=== PATIENT | male | born 2000 | race Caucasian/White ===

== ENCOUNTER 2024-01-14 08:05 | Outpatient (OUT) | payer SELFPAY ==
--- NOTE | 2024-01-14 | XR_ITS ---
The [address] [address] Patient Name: VIVIEN FITZPATRICK MRN: [id number] date: 2000 Sex: M Assigned Patient Location: Current Patient Location: [facility] Accession/Order Number: [id number] Exam Date: 01/14/2024 08:11 Report Date: 01/15/2024 14:40 At the request of: RADHA GENTILE Procedure: XR ankle RT min 3V PROCEDURE: XR ankle RT min 3V COMPARISON: Images from an outside institution could not be viewed HISTORY: RIGHT ANKLE PAIN FINDINGS: BONES:Acute oblique distal fibular fracture with medial displacement of the proximal fracture fragment 7.7 mm. There is 8 mm of medial subluxation of the tibial plafond and in relation to the talar dome with widening of the medial joint space. Small fracture along the posterior malleolus measuring 1.1 cm. SOFT TISSUES:Moderate diffuse soft tissue swelling EFFUSION:None visible. OTHER: Negative. XR/XR ankle RT min 3V IMPRESSION: Acute fractures of the distal fibula and posterior malleolus Ankle instability Electronically authenticated by: FLORA TALBERT Date: 01/15/2024 14:40
== END 2024-01-14 08:06 | disposition home or self-care (01) ==
LOC: EC 08:06
PROVIDERS: Visit Provider Podiatrist Foot & Ankle Surgery
DX: M25.571 Pain in right ankle and joints of right foot (principal); S89.391A Other physeal fracture of lower end of right fibula, initial encounter for closed fracture
CPT/HCPCS: 73610

== ENCOUNTER 2024-01-14 09:15 | Outpatient (OUT) | payer OTHER, SELFPAY | END 2024-01-14 09:16 | disposition home or self-care (01) | LOC: PST 09:18 | PROVIDERS: Visit Provider Podiatrist Foot & Ankle Surgery | DX: Z01.818 Encounter for other preprocedural examination (principal); S82.401A Unspecified fracture of shaft of right fibula, initial encounter for closed fracture ==

== ENCOUNTER 2024-01-16 06:43 | Day surgery (SDC) | payer OTHER, SELFPAY ==
[2024-01-14 09:45] VITALS: BP 156/82; PULSE 95; TEMP 36.4; O2SAT 98; BMI 35.1
--- NOTE | 2024-01-16 | FL_ITS ---
[address] [address] Patient Name: VIVIEN FITZPATRICK MRN: [id number] date: 2000 Sex: M Assigned Patient Location: [facility] Current Patient Location: [facility] [place] Accession/Order Number: [id number] Exam Date: 01/16/2024 10:05 Report Date: 01/22/2024 10:13 At the request of: RADHA GENTILE Procedure: FL fluoroscopy <1hr NON-READ EXAM: FL fluoroscopy <1hr NON-READ HISTORY: TECHNIQUE: FINDINGS: Please see Operative Report. Electronically authenticated by: RADIOLOGIST NO Date: 01/22/2024 10:13
[2024-01-16 07:02] LABS: Basophils Percent Auto 0.4 % (0.2-2.0); Eosinophils Absolute Auto 0.1 10^3/uL (0.0-0.7); Eosinophils Percent Auto 0.6 % (0.9-7.0); Hematocrit 42.3 % (42.0-54.0); Hemoglobin 13.8 g/dL (14.0-18.0); Immature Granulocytes Abs Auto 0.03 10^3/uL (0.00-0.03); Immature Granulocytes Pct Auto 0.4 % (0.0-0.5); Lymphocytes Absolute Auto 1.6 10^3/uL (1.2-3.8); Lymphocytes Percent Auto 18.5 % (20.5-60.0); Mean Corpuscular HGB Conc 32.6 g/dL (29.9-35.2); Mean Corpuscular Hemoglobin 28.5 pg (25.9-34.0); Mean Corpuscular Volume 87.4 fL (80.0-94.0); Mean Platelet Volume 9.8 fL (9.5-13.5); Monocytes Absolute Auto 0.6 10^3/uL (0.3-0.8); Monocytes Percent Auto 7.2 % (1.7-12.0); Neutrophils Absolute Auto 6.2 10^3/uL (1.4-6.5); Neutrophils Percent Auto 72.9 % (43.0-75.0); Platelet Count 201 10^3/uL (150-450); Red Blood Count 4.84 10^6/uL (4.70-6.10); White Blood Count 8.4 10^3/uL (4.0-11.0)
[2024-01-16 07:10] VITALS: BP 166/89; PULSE 82; TEMP 36.7; O2SAT 95; BMI 34.4
[2024-01-16 07:41] LABS: Glucometer 104 mg/dL (74-106)
[2024-01-16] MEDS: LACTATED RINGER'S SOLUTION 1,000 ML 50 ML IV ×2 (07:56→10:32)
--- NOTE | 2024-01-16 08:02 | PC.NURSE ---
Patient consented to peripheral nerve block. 0742 Time out performed per protocol. Monitors connected and O2 applied. Patient positioned and then medicated per Dr. Strickland. Bedside ultrasound used to locate site. Block started at 0746 and ended at 0749. Patient remains on monitor and O2 until he will be taken to OR. Patient tolerated procedure well. at bedside currently.
[2024-01-16] MEDS: CEFAZOLIN SODIUM 2 GM/50 ML D5W PREMIX IV (08:12)
--- NOTE | 2024-01-16 08:38 | P.ORON_ITS ---
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 He presented to a local emergency department and was found to have lateral malleolus fracture with subluxation of the tibiotalar joint. He then saw me on 01/14/2024 and x-rays also demonstrated a small posterior malleolus fracture with substantial subluxation of the tibiotalar joint laterally. I discussed the potential risks and benefits of surgical intervention with my concern that if the ankle is not anatomically fixed he would have a higher risk of posttraumatic arthritis and chronic disability. Patient provided consent to undergo the above procedure Intraoperative findings: Intact skin wrinkles were noted on the lateral ankle and a significant improvement in swelling was noted as compared to examination in the office 2 days ago. The ankle was grossly unstable. Fibular fracture was consistent with oblique Dockery B with a significant amount of soft tissue/periosteum within the fracture line. Hematoma was notable over the lateral ankle which was evacuated thoroughly. Bone was hard and healthy with thick cortices. Stress examination revealed unstable syndesmosis therefore was repaired/stabilized. Medial and lateral ankle ligaments were stable. Once the lateral malleolus was fixed and the syndesmosis stabilized the posterior malleolus fracture was small with only mild displacement. Procedure in detail: Patient was identified in preoperative holding by myself which time correct side and site were marked and consent was obtained. Patient then underwent regional anesthesia by the anesthesia team. Preoperative antibiotics were started and the patient was brought back to the operating room and placed on table in supine position with a thigh tourniquet. Right lower extremity was prepped and draped in usual sterile fashion. Formal timeout was performed then the lower extremity was exsanguinated and the tourniquet was inflated. A longitudinal incision placed over the fibular malleolus was undertaken. Combination of sharp and blunt dissection gained access to the fibular fracture in all bleeders were coagulated. Hematoma was evacuated. Any periosteum or fibrous tissue was removed from the fracture line and the fracture surfaces were lightly curetted. Then utilizing manual reduction techniques the lateral malleolus was anatomically reduced and the posterior malleolus with only minimal displacement and was consistent with a cortical shell therefore decision was made to manage the posterior malleolus closed. A reduction clamp was used to temporarily stabilize the oblique lateral malleolus fracture. The fibula was then pinned temporarily with K wires temporarily. 3.5 mm cortical lag screw was placed across the fracture line and compression was noted. 3.5 mm fibular plate was placed over the fibula which was held in place temporarily. Then nonlocking screws were placed above the fracture and for locking screws were placed below the fracture according to the janitorial account manager's standard directions. Stability across the fracture was noted and all temporary fixation was removed. The site was irrigated. Under live fluoroscopy the syndesmosis was stressed and noted to be unstable. Due to the instability syndesmosis was reduced with a large tenaculum using a stab incision over the medial malleolus. Alignment was checked on fluoroscopy. 2 guidepins were drilled parallel to the tibiotalar joint through the plate spanning the syndesmosis and exiting the medial cortex of the tibia. A 4 cm incision was placed over the medial tibia allowing the guidepins to pass medially. Alignment was checked and further dissection was used to remove small amount of periosteum over the medial cortex of the tibia. Then syndesmotic anchors were passed through the guidepins which were then pulled out of the body medially allowing the suture buttons to be secured on the medial tibial cortex. Then the lateral buttons were tightened sequentially and excess suture was removed. The tenaculum was removed and the syndesmosis was stressed noting to be stable. The deltoid ligament was then stressed and noted to be stable as well as anterior drawer was tested and noted to be stable. All surgical sites were irrigated with copious sterile saline and incisions were closed in layers. The tourniquet was deflated with a prompt hyperemic response once deep fascia was closed and skin was closed with nonabsorbable suture. Dry sterile dressing consisting of Xeroform 4 x 4's and Kerlix were placed over the incisions then multiple layers of cast padding were placed from the ball of the foot to the popliteal fossa followed by a layer of Jr wrap's and additional layers of cast padding. Then a posterior posterior splint was placed appropriately and was secured with Jr wrap's. Patient tolerated the procedure and anesthesia well was transferred to the recovery room with vital signs stable and brisk capillary refill to the right toes. Postoperative plan: Discharge home under 's care Strict nonweightbearing on right ankle for at least 3 weeks Prescriptions were sent to the pharmacy from my office Elevate right lower extremity above the level of the heart Follow-up in 1 week to check incisions and likely place in fiberglass cast Implants: Medline fibular plate/3.5 mm screws & syndesmosis anchors x2 Anesthesia: regional and General-LMA Surgeon: Elliott Stinson Estimated blood loss (mL): 25 Tourniquet time (min): 77 Pathology: none sent Condition: stable Disposition: PACU
[2024-01-16 11:09] VITALS: BP 141/76; PULSE 63; TEMP 36.1; O2SAT 92
[2024-01-16 11:18] VITALS: PULSE 60; O2SAT 96
[2024-01-16 11:29] LABS: Glucometer 114 mg/dL (74-106)
[2024-01-16] MEDS: OXYCODONE HCL 5 MG TABLET 10 MG PO (11:50)
--- NOTE | 2024-01-16 11:50 | XR_ITS ---
The [address] [address] Patient Name: VIVIEN FITZPATRICK MRN: [id number] date: 2000 Sex: M Assigned Patient Location: [facility] Current Patient Location: Accession/Order Number: [id number] Exam Date: 01/16/2024 11:40 Report Date: 01/17/2024 12:53 At the request of: RADHA GENTILE Procedure: XR ankle RT min 3V PROCEDURE: XR ankle RT min 3V COMPARISON: 01/14/2024 HISTORY: fracture FINDINGS: BONES:[Reduction internal fixation of complex distal fibular fracture with fixation across the tibiofibular syndesmosis. No mechanical failure. Posterior malleolus fracture is stable SOFT TISSUES:Negative. No visible soft tissue swelling. EFFUSION:None visible. OTHER: Negative. XR/XR ankle RT min 3V IMPRESSION: Open reduction internal fixation of a distal fibular fracture with fixation of the tibiofibular syndesmosis Electronically authenticated by: FLORA TALBERT Date: 01/17/2024 12:53
[2024-01-16 12:23] VITALS: BP 127/71; PULSE 85; O2SAT 96
== END 2024-01-16 12:55 | disposition home or self-care (01) ==
PROVIDERS: Anesthesiology; Visit Provider Podiatrist Foot & Ankle Surgery
PROC: (CPT 1480; principal; 2024-01-16 08:00)
DX: S82.61XA Displaced fracture of lateral malleolus of right fibula, initial encounter for closed fracture (principal); S93.431A Sprain of tibiofibular ligament of right ankle, initial encounter; W01.0XXA Fall on same level from slipping, tripping and stumbling without subsequent striking against object, initial encounter; F17.290 Nicotine dependence, other tobacco product, uncomplicated
CPT/HCPCS: 27792; 27829; 36415; 64445; 73610; 76000; 82948; 85025; C1713; J0690; J1100; J1885; J2250; J2405; J2704; J2795; J3010

== ENCOUNTER 2024-02-05 07:47 | Outpatient (OUT) | payer OTHER, SELFPAY ==
--- NOTE | 2024-02-05 | XR_ITS ---
The [address] [address] Patient Name: VIVIEN FITZPATRICK MRN: [id number] date: 2000 Sex: M Assigned Patient Location: [facility] Current Patient Location: Accession/Order Number: [id number] Exam Date: 02/05/2024 08:00 Report Date: 02/06/2024 07:53 At the request of: RADHA GENTILE Procedure: XR ankle RT min 3V PROCEDURE: XR ankle RT min 3V HISTORY: RIGHT ANKLE PAIN COMPARISON: XR ankle right 01/16/2024 FINDINGS: BONES:Mechanical fusion of the distal fibular fracture via a lateral plate and screws. Band effusion of the syndesmosis. Stable small ossification distal to the medial malleolus. SOFT TISSUES:Soft tissue swelling surrounding the ankle. EFFUSION:None visible. OTHER: Images were obtained through cast material. XR/XR ankle RT min 3V IMPRESSION: 1. Stable surgical changes without evidence of hardware failure change in alignment. 2. Distal fibula fracture line is still visible; suspect ongoing bone healing. Electronically authenticated by: MARY BUTLER Date: 02/06/2024 07:53
--- OUTSIDE RECORDS SUMMARY | 2024-02-05 07:49 | XMS_ITS | CCD ---
Author Organization [facility] Care Team Providers Care Night Baker Name Role Phone GEOVANNI MALAVE Admitting Unavailable ROSGEOVANNI CARDENAS Primary Care Unavailable GEOVANNI MALAVE Consulting Unavailable GEOVANNI MALAVE Attending Unavailable DR FLORA TALBERT V Consulting Unavailable GEOVANNI MALAVE Primary Care Unavailable CARITO LINCOLN Admitting Unavailable CARITO LINCOLN Attending Unavailable CARITO LINCOLN Consulting Unavailable EMMIE JULIO Primary Care Unavailable TG CRUZ Attending Unavailable NO PCP, NO PCP Primary Care Unavailable DAIANA MALLOY Attending Unavailable DAIANA MALLOY Referring Unavailable NO PCP, NO PCP Primary Care Unavailable DAIANA MALLOY Attending Unavailable DAIANA MALLOY Referring Unavailable NO PCP, NO PCP Primary Care Unavailable Medications Current Medications Medication Drug Class(es) Dates Sig (Normalized) Sig (Original) acetaminophen 21.7 mg/ml / dextromethorphan hydrobromide 0.667 mg/ml / phenylephrine hydrochloride 0.333 mg/ml oral solution (1 source) Uncompetitive D-yddvif-X-aspartat e Receptor Antagonist, Sigma-1 Agonist, alpha-1 Adrenergic Agonist Start: 08-18-2023 Phenylephrine-D m-Acetaminophen (Vicks Dayquil Cold-Flu Relief) 5-10-325 mg/15 mL liquid Active ML PO August 18, 2023 12:00am dextromethorphan hydrobromide 15 mg / guaiFENesin 400 mg / pseudoephedrine hydrochloride 60 mg oral tablet (1 source) alpha-Adrenergic Agonist, Uncompetitive G-jnenqa-F-aspartat e Receptor Antagonist, Sigma-1 Agonist Start: 08-18-2023 take 4 tablets by mouth every twenty-four hours Pseudoephedrine -Dm-Guaifenesin (Capmist Dm) 60-15-400 mg tablet Active 1 TAB PO EVERY 4-6 HOURS August 18, 2023 12:00am do not exceed 4 doses per 24 hrs predniSONE 20 mg oral tablet (1 source) Start: 08-18-2023 take 20 mg by mouth twice daily Prednisone Active 20 MG PO Twice daily 10 5 August 18, 2023 12:00am Problems Active Problems Problem Classification Problem Date Documented Da te Episodic/Chronic Administrative/social admission (4 sources) Encounter for pre-employment examination; Translations: [ENCOUNTER FOR PRE-EMPLOYMENT EXAM] Onset: 01-18-2021 Episodic Fracture of lower limb (1 source) Displaced comminuted fracture of shaft of unspecified fibula, initial encounter for closed fracture; Translations: [Displaced comminuted fracture of shaft of unspecified fibula, initial encounter for closed fracture] Onset: 01-11-2024 Episodic Other circulatory disease (1 source) Elevated blood-pressure reading, without diagnosis of hypertension; Translations: [ELEVATED BP READING W/O DX HTN] Onset: 03-01-2021 Episodic Other screening for suspected conditions (not mental disorders or infectious disease) (1 source) Encounter for screening for lipoid disorders; Translations: [ENC SCREENING FOR LIPOID DISORDERS] Onset: 03-01-2021 Episodic Unclassified (1 source) Ankle Injury Onset: 01-11-2024 Past or Other Problems Problem Classification Problem Date Documented Da te Episodic/Chronic Nonspecific chest pain (3 sources) Chest pain, unspecified; Translations: [Chest pain] Onset: 07-16-2023 Episodic Results Test Name Value Interpretation Reference Range Facil ity XR ANKLE RT MIN 3 VWSon 12-28 XR ANKLE RT MIN 3 VWS XR ANKLE RT MIN 3 VWS XR ANKLE RT MIN 3 VWS 01/11/2024 8:45 PM INDICATION: injury, ankle swelling COMPARISON: None TECHNIQUE: 3 views of the right ankle were obtained. FINDINGS/IMPRESSION: 1. Comminuted fracture of the distal fibula with mild displacement. 2. Disruption of the ankle mortise, with widening of the ankle mortise medially, concerning for ligamentous disruption. Imaging of the proximal tibiofibula recommended. 3. Irregular appearance of the lateral talus may represent additional site of fracture. Irregularity of the talar dome and/or some loose bodies adjacent may represent subtle intra-articular fractures. Well-corticated body adjacent to the medial malleolus likely represent remote injury. Cross-sectional imaging could be considered to better characterize fractures. 4. Moderate to severe ankle soft tissue swelling. Finalized by Tg Donis DO on 01/11/2024 9:01 PM Normal [facility] XR FOOT RT MIN 3 VWSon 01-10 XR FOOT RT MIN 3 VWS XR FOOT RT MIN 3 VWS XR FOOT RT MIN 3 VWS Clinical history:injury acute foot pain Comparison: None. Findings: No acute process fracture dislocation of the foot. Partially visualized distal fibular fracture. Ankle findings reported separately. Impression: No acute ossific abnormality of the foot. Finalized by Mateo Jasmine MD on 01/11/2024 8:58 PM Normal [facility] XR TIBIA FIBULA RT MIN 2 VWS on 01-11-2024 XR TIBIA FIBULA RT MIN 2 VWS XR TIBIA FIBULA RT MIN 2 VWS XR TIBIA FIBULA RT MIN 2 VWS: 01/11/2024 9:10 PM CLINICAL INDICATION: Pain COMPARISON: None. TECHNIQUE: AP and lateral view of the right tibia and fibula FINDINGS: Redemonstration of distal right fibular fracture and severe widening of the medial clear space consistent with an unstable ankle fracture. The proximal tibia and fibula are intact without evidence of acute fracture or dislocation. Right knee is grossly intact. IMPRESSION: The proximal tibia and fibula are intact without evidence of acute fracture or dislocation. Redemonstration of distal right fibular fracture and severe widening of the medial clear space consistent with syndesmotic injury an unstable ankle fracture. Finalized by Yohan Bobo MD on 01/11/2024 9:23 PM Normal [facility] CBC AND AUTO DIFFon 07-16-19 ABSOLUTE BASOPHIL 0.1 X10E9/L Normal 0.0-0.2 [facility] Comment on above: Performed By: #### C VARINDER GOODE, 64415-6 #### [facility] ([id number]) [address] [place] [address], [place] [address] ABSOLUTE NEUTROPHIL 4.6 X10E9/L Normal 1.5-6.6 [facility] Comment on above: Performed By: #### C VARINDER GOODE, 64939-9 #### [facility] ([id number]) [address] [place] [address] 46931 Basophils/100 WBC (Bld) 0.8 % Normal [facility] Comment on above: Performed By: #### C RUPA, CMP, 70083-1 #### [facility] ([id number]) [address] [place] [address] 96474 Eosinophils (Bld) [#/Vol] 0.1 10*3/uL Normal 0.0-0.[address] [facility] Comment on above: Performed By: #### Nichole GOODE, CMP, 27066-5 #### [facility] ([id number]) [address] [place] [address] 33333 Eosinophils/100 WBC (Bld) 1.1 % Normal [facility] Comment on above: Performed By: #### Nichole GOODE CMP, 17142-0 #### [facility] ([id number]) [address] [place] [address] 96272 Erythrocyte distribution width (RBC) [Ratio] 12.9 % Normal 11.5-15.[address] [facility] Comment on above: Performed By: #### Nichole GOODE, CMP, 92842-6 #### [facility] ([id number]) [address] [place] [address] 78098 Hematocrit (Bld) [Volume fraction] 43.6 % Normal 39-[address] [facility] Comment on above: Performed By: #### Nichole GOODE, CMP, 69506-3 #### [facility] ([id number]) [address] [place] [address] 15631 Hemoglobin (Bld) [Mass/Vol] 15.0 g/dL Normal 13.0-17.[address] [facility] Comment on above: Performed By: #### Nichole GOODE, CMP, 63935-3 #### [facility] ([id number]) [address] [place] [address] 68875 Lymphocytes (Bld) [#/Vol] 2.9 10*3/uL Normal 1.0-3.[address] [facility] Comment on above: Performed By: #### Nichole GOODE CMP, 71997-8 #### [facility] ([id number]) [address] [place] [address] 97251 Lymphocytes/100 WBC (Bld) 35.1 % Normal [facility] Comment on above: Performed By: #### Nichole GOODE CMP, 44482-0 #### [facility] ([id number]) [address] [place] [address] 36315 MCH (RBC) [Entitic mass] 28.7 pg Normal 27-[address] [facility] Comment on above: Performed By: #### Nichole GOODE CMP, 97368-8 #### [facility] ([id number]) [address] [place] [address] 75635 MCHC (RBC) [Mass/Vol] 34.5 g/dL Normal 32-[address] [facility] Comment on above: Performed By: #### Nichole GOODE CMP, 69038-4 #### [facility] ([id number]) [address] [place] [address] 75522 MCV (RBC) [Entitic vol] 83 fL Normal 80-[address] [facility] Comment on above: Performed By: #### Nichole GOODE CMP, 55908-3 #### [facility] ([id number]) [address] [place] [address] 24438 Monocytes (Bld) [#/Vol] 0.6 10*3/uL Normal 0-0.[address] [facility] Comment on above: Performed By: #### Nichole GOODE CMP, 61715-4 #### [facility] ([id number]) [address] [place] [address] 45735 Monocytes/100 WBC (Bld) 6.8 % Normal [facility] Comment on above: Performed By: #### Nichole GOODE, CMP, 27999-2 #### [facility] ([id number]) [address] [place] [address] 80607 Neutrophils/100 WBC (Bld) 56.2 % Normal [facility] Comment on above: Performed By: #### Nichole GOODE, CMP, 33747-9 #### [facility] ([id number]) [address] [place] [address] 51659 Platelet mean volume (Bld) [Entitic vol] 8.6 fL Normal 7-[address] [facility] Comment on above: Performed By: #### Nichole GOODE, CMP, 74068-1 #### [facility] ([id number]) [address] [place] [address] 15999 Platelets (Bld) [#/Vol] 220 10*3/uL Normal 150-[address] [facility] Comment on above: Performed By: #### Nihcole GOODE, CMP, 78446-1 #### [facility] ([id number]) [address] [place] [address] 35666 RBC COUNT 5.24 X10E12/L Normal 4.10-5.[address] [facility] Comment on above: Performed By: #### Nichole GOODE, CMP, 26209-4 #### [facility] ([id number]) [address] [place] [address] 13639 WBC (Bld) [#/Vol] 8.2 10*3/uL Normal 4.0-11.0 [facility] Comment on above: Performed By: #### Nichole GOODE, CMP, 93576-1 #### [facility] ([id number]) [address] [place] [address] 45148 COMPREHENSIVE METABOLIC PANE Steven 07-16-2023 Albumin [Mass/Vol] 5.3 g/dL Normal 3.2-5.3 [facility] Comment on above: Performed By: #### C BCA, CMP, 05201-5 #### [facility] ([id number]) [address] [place] [address] 78155 ALP [Catalytic activity/Vol] 80 U/L Normal 39-[address] [facility] Comment on above: Performed By: #### C BCA, CMP, 00584-2 #### [facility] ([id number]) [address] [place] [address] 44176 ALT [Catalytic activity/Vol] 25 U/L Normal 0-[address] [facility] Comment on above: Performed By: #### C BCA, CMP, 59298-7 #### [facility] ([id number]) [address] [place] [address] 35578 Anion gap [Moles/Vol] 9 mmol/L Normal 5-[address] [facility] Comment on above: Performed By: #### C BCA, CMP, 18643-1 #### [facility] ([id number]) [address] [place] [address] 75706 AST [Catalytic activity/Vol] 25 U/L Normal 0-[address] [facility] Comment on above: Performed By: #### C BCA, CMP, 93541-9 #### [facility] ([id number]) [address] [place] [address] 89186 Bilirubin [Mass/Vol] 0.7 mg/dL Normal 0.3-1.[address] [facility] Comment on above: Performed By: #### C BCA, CMP, 50786-4 #### [facility] ([id number]) [address] [place] [address] 13995 Calcium [Mass/Vol] 9.1 mg/dL Normal 8.5-10.5 [facility] Comment on above: Performed By: #### C BCA, CMP, 74060-9 #### [facility] ([id number]) [address] [place] [address] 94779 Chloride [Moles/Vol] 98 mmol/L Normal 98-[address] [facility] Comment on above: Performed By: #### C VARINDER GOODE, 36922-2 #### [facility] ([id number]) [address] [place] [address] 89620 CO2 [Moles/Vol] 26 mmol/L Normal 22-[address] [facility] Comment on above: Performed By: #### C VARINDER GOODE, 55091-8 #### [facility] ([id number]) [address] [place] [address] 19413 Creatinine [Mass/Vol] 1.29 mg/dL High 0.70-1.[address] [facility] Comment on above: Result Comment: METH OD TRACEABLE TO IDMS STANDARD Performed By: #### C VARINDER GOODE, 14309-7 #### [facility] ([id number]) [address] [place] [address] 65451 GFR/1.73 sq M.predicted among non-blacks MDRD (S/P/Bld) [Vol rate/Area] 80 mL/min/{1.73_m2} Normal >[address] [facility] Comment on above: Result Comment: Reported eGFR is based on the CKD-EPI 1 equation that does not use a race coefficient. Performed By: #### C VARINDER GOODE, 47028-8 #### [facility] ([id number]) [address] [place] [address] 47671 Glucose [Mass/Vol] 97 mg/dL Normal 65-99 [facility] Comment on above: Performed By: #### C VARINDER GOODE, 65696-7 #### [facility] ([id number]) [address] [place] [address] 07008 Potassium [Moles/Vol] 3.6 mmol/L Normal 3.5-5.[address] [facility] Comment on above: Performed By: #### Nichole GOODE CMP, 14513-8 #### [facility] ([id number]) [address] [place] [address] 96447 Protein [Mass/Vol] 8.2 g/dL High 6.0-8.0 [facility] Comment on above: Performed By: #### Nichole GOODE CMP, 84229-7 #### [facility] ([id number]) [address] [place] [address] 59561 Sodium [Moles/Vol] 133 mmol/L Low 134-146 [facility] Comment on above: Performed By: #### Nichole GOODE CMP, 48920-8 #### [facility] ([id number]) [address] [place] [address] 81339 Urea nitrogen [Mass/Vol] 22 mg/dL Normal 5-[address] [facility] Comment on above: Performed By: #### Nichole GOODE CMP, 05966-2 #### [facility] ([id number]) [address] [place] [address] 18447 TROPONIN Ion 07-16-2023 Troponin I.cardiac [Mass/Vol] 0.01 ng/mL Normal 0.00-0.[address] [facility] Comment on above: Performed By: #### Nichole GOODE, CMP, 05923-2 #### [facility] ([id number]) [address] [place] [address] 98282 Outside Recordson 09-12-2021 Outside Records Response from [facility] stating patient needs to sign record release form in order to send records. [Electronically Signed on: 09/12/2021 08:16 EDT] Jie Browne [Verified on: 09/12/2021 08:16 EDT] Jie Browne A Called pt , he will be stopping in next week to sign release. [Electronically Signed on: 09/20/2021 13:53 EDT] Jie Browne A Normal [facility] CBC AUTO DIFFon 01-18-2021 BASO # 0.0 103/ul Normal 0.0-0.1 [facility] Comment on above: Performed By: #### C BC #### [facility] [address] [place] [address] Dr. Jayne Pedraza Basophils/100 WBC (Bld) 0.4 % Normal 0.2-2.0 [facility] Comment on above: Performed By: #### C BC #### [facility] [address] [place] [address] Dr. Jayne Pedraza EO # 0.1 103/ul Normal 0.0-0.7 [facility] Comment on above: Performed By: #### C BC #### [facility] [address] [place] [address] Dr. Jayne Pedraza Eosinophils/100 WBC (Bld) 0.9 % Normal 0.9-7.0 [facility] Comment on above: Performed By: #### C BC #### [facility] [address] [address] [address] Jayne Pedraza Erythrocyte distribution width (RBC) [Ratio] 12.0 % Normal 11.0-15.0 [facility] Comment on above: Performed By: #### C BC #### [facility] [address] [place] [address] Dr. Jayne Pedraza Hematocrit (Bld) [Volume fraction] 45.7 % Normal 42.0-54.0 [facility] Comment on above: Performed By: #### C BC #### [facility] [address] [place] [address] Dr. Jayne Pedraza Hemoglobin (Bld) [Mass/Vol] 14.8 g/dL Normal 14.0-18.0 [facility] Comment on above: Performed By: #### C BC #### [facility] [address] [address] [address] Jayne Pedraza IG # 0.07 10e3/ul Critically high 0.00-0.[address] [facility] Comment on above: Performed By: #### C BC #### [facility] [address] [address] [address] Jayne Pedraza IG % 0.7 % Critically high 0.0-0.5 [facility] Comment on above: Performed By: #### C BC #### [facility] [address] [place] [address] Dr. Jayne Pedraza LYMPH # 1.5 103/ul Normal 1.2-3.8 [facility] Comment on above: Performed By: #### C BC #### [facility] [address] [place] [address] Dr. Jayne Pedraza Lymphocytes/100 WBC (Bld) 16.0 % Critically low 20.5-60.0 [facility] Comment on above: Performed By: #### C BC #### [facility] [address] [place] [address] Dr. Jayne Pedraza MANUAL DIFF REQ NO Normal [facility] Comment on above: Performed By: #### C BC #### [facility] [address] [place] [address] Dr. Jayne Pedraza MCH (RBC) [Entitic mass] 28.0 pg Normal 25.9-34.0 [facility] Comment on above: Performed By: #### C BC #### [facility] [address] [place] [address] Dr. Jayen Pedraza MCHC (RBC) [Mass/Vol] 32.4 g/dL Normal 29.9-35.2 [facility] Comment on above: Performed By: #### C BC #### [facility] [address] [place] [address] Dr. Jayne Pedraza MCV (RBC) [Entitic vol] 86.6 fL Normal 80.0-94.0 [facility] Comment on above: Performed By: #### C BC #### [facility] [address] [address] [address] Jayne Pedraza MONO # 0.7 103/ul Normal 0.3-0.8 [facility] Comment on above: Performed By: #### C BC #### [facility] [address] [address] [address] Jayne Pedraza Monocytes/100 WBC (Bld) 7.6 % Normal 1.7-12.0 [facility] Comment on above: Performed By: #### C BC #### [facility] [address] [address] [address] Jayne Pedraza NEUT # 7.2 103/ul Critically high 1.4-6.5 [facility] Comment on above: Performed By: #### C BC #### [facility] [address] [place] [address] Dr. Jayne Pedraza Neutrophils/100 WBC (Bld) 74.4 % Normal 43.0-75.0 [facility] Comment on above: Performed By: #### C BC #### [facility] [address] [address] [address] Jayne Pedraza Platelet mean volume (Bld) [Entitic vol] 10.0 fL Normal 9.5-13.5 [facility] Comment on above: Performed By: #### C BC #### [facility] [address] [place] [address] Dr. Jayne Pedraza PLT 241 103/ul Normal 150-450 [facility] Comment on above: Performed By: #### C BC #### [facility] [address] [address] [address] Jayne Pedraza RBC 5.28 106/ul Normal 4.70-6.10 [facility] Comment on above: Performed By: #### C BC #### [facility] [address] [address] [address] Jayne Pedraza WBC 9.6 103/ul Normal 4.0-11.0 [facility] Comment on above: Performed By: #### C BC #### [facility] [address] [address] [address] Jayne Pedraza DIRECT LDLon 01-18-2021 Cholesterol in LDL [Mass/Vol] 80 mg/dL Normal [facility] Comment on above: Performed By: #### D LDL #### [facility] [address] [address] [address] Jayne Pedraza DLDL NORMAL SEE BELOW Normal [facility] Comment on above: Result Comment: <100 mg/dl OPTIMAL 100 - 129 mg/dl NEAR OR ABOVE OPTIMAL 130 - 159 mg/dl BORDERLINE HIGH 160 - 189 mg/dl HIGH >190 mg/dl VERY HIGH Performed By: #### D LDL #### [facility] [address] [address] [address] Jayne Pedraza LIPID PROFILEon 01-18-2021 CHOL-HDL RATIO NORM SEE BELOW Normal [facility] Comment on above: Result Comment: 3.3 - 4.4 LOW RISK 4.4 - 7.1 AVERAGE RISK 7.1 - 11.0 MODERATE RISK >11.0 HIGH RISK Performed By: #### T SH, LIPID, CMP #### [facility] [address] [address] [address] Jayne Pedraza Cholesterol [Mass/Vol] 133 mg/dL Normal <=200 [facility] Comment on above: Performed By: #### T SH, LIPID, CMP #### [facility] [address] [place] [address] Dr. Jayne Pedraza Cholesterol in HDL [Mass/Vol] 31 mg/dL Normal [facility] Comment on above: Performed By: #### T SH, LIPID, CMP #### [facility] [address] [address] [address] Jayne Pedraza Cholesterol in LDL [Mass/Vol] 70.4 mg/dL Normal [facility] Comment on above: Performed By: #### T SH, LIPID, CMP #### [facility] [address] [place] [address] Dr. Jayne Pedraza Cholesterol.total/C holesterol in HDL [Mass ratio] 4.3 {ratio} Normal [facility] Comment on above: Performed By: #### T SH, LIPID, CMP #### [facility] [address] [address] [address] Jayne Pedraza HDL NORMAL > or = 60 mg/dl - LOW CARDIOVASCULAR RISK <40 mg/dl - HIGH CARDIOVASCULAR RISK Normal [facility] Comment on above: Performed By: #### T SH, LIPID, CMP #### [facility] [address] [address] [address] Jayne Pedraza LDL CALC NORMAL SEE BELOW Normal [facility] Comment on above: Result Comment: <100 mg/dl OPTIMAL 100 - 129 mg/dl NEAR OR ABOVE OPTIMAL 130 - 159 mg/dl BORDERLINE HIGH 160 - 189 mg/dl HIGH >190 mg/dl VERY HIGH Performed By: #### T CARLA, LIPID, CMP #### [facility] [address] [address] [address] Jayne Pedraza Triglyceride [Mass/Vol] 158 mg/dL Critically high <=150 [facility] Comment on above: Performed By: #### T CARLA, LIPID, CMP #### [facility] [address] [address] [address] Jayne Pedraza VLDL CALC 31.6 mg/dL Normal [facility] Comment on above: Performed By: #### T CARLA, LIPID, CMP #### [facility] [address] [place] [address] Dr. Jayne Pedraza PROF 14(COMP METB)on 021 Albumin [Mass/Vol] 4.6 g/dL Normal 3.5-5.0 [facility] Comment on above: Performed By: #### T CARLA, LIPID, CMP #### [facility] [address] [place] [address] Dr. Jayne Pedraza Albumin/Globulin [Mass ratio] 1.2 {ratio} Normal [facility] Comment on above: Performed By: #### T CARLA, LIPID, CMP #### [facility] [address] [place] [address] Dr. Jayne Pedraza ALP [Catalytic activity/Vol] 88 U/L Normal 38-126 [facility] Comment on above: Performed By: #### T CARLA, LIPID, CMP #### [facility] [address] [address] [address] Jayne Pedraza ALT [Catalytic activity/Vol] 22 U/L Normal 21-72 [facility] Comment on above: Performed By: #### T CARLA, LIPID, CMP #### [facility] [address] [place] [address] Dr. Jayne Pedraza Anion gap [Moles/Vol] 13.5 mmol/L Normal [facility] Comment on above: Performed By: #### T CARLA, LIPID, CMP #### [facility] [address] [place] [address] Dr. Jayne Pedraza AST [Catalytic activity/Vol] 13 U/L Critically low 17-59 [facility] Comment on above: Performed By: #### T CARLA, LIPID, CMP #### [facility] [address] [place] [address] Dr. Jayne Pedraza Bilirubin [Mass/Vol] 0.7 mg/dL Normal 0.2-1.3 [facility] Comment on above: Performed By: #### T CARLA, LIPID, CMP #### [facility] [address] [place] [address] Dr. Jayne Pedraza Calcium [Mass/Vol] 10.1 mg/dL Normal 8.4-10.2 [facility] Comment on above: Performed By: #### T CARLA, LIPID, CMP #### [facility] [address] [place] [address] Dr. Jayne Pedraza Chloride [Moles/Vol] 100 mmol/L Normal 98-107 [facility] Comment on above: Performed By: #### T CARLA, LIPID, CMP #### [facility] [address] [place] [address] Dr. Jayne Pedraza CO2 [Moles/Vol] 27.8 mmol/L Normal 22.0-30.0 [facility] Comment on above: Performed By: #### T CARLA, LIPID, CMP #### [facility] [address] [place] [address] Dr. Jayne Pedraza Creatinine [Mass/Vol] 1.09 mg/dL Normal 0.66-1.25 [facility] Comment on above: Performed By: #### T CARLA, LIPID, CMP #### [facility] [address] [address] [address] Jayne Pedraza EGFR-AF GABONESE >60 Normal >=60 [facility] Comment on above: Performed By: #### T SH, LIPID, CMP #### [facility] [address] [address] [address] Jayne Pedraza EGFR-NON AF GABONESE >60 Normal >=60 [facility] Comment on above: Performed By: #### T SH, LIPID, CMP #### [facility] [address] [address] [address] Jayne Pedraza Globulin (S) [Mass/Vol] 3.7 g/dL Normal [facility] Comment on above: Performed By: #### T SH, LIPID, CMP #### [facility] [address] [place] [address] Dr. Jayne Pedraza Glucose [Mass/Vol] 93 mg/dL Normal 74-106 [facility] Comment on above: Performed By: #### T SH, LIPID, CMP #### [facility] [address] [place] [address] Dr. Jayne Pedraza Potassium [Moles/Vol] 4.3 mmol/L Normal 3.4-5.0 [facility] Comment on above: Performed By: #### T SH, LIPID, CMP #### [facility] [address] [place] [address] Dr. Jayne Pedraza Protein [Mass/Vol] 8.3 g/dL Critically high 6.1-8.2 [facility] Comment on above: Performed By: #### T SH, LIPID, CMP #### [facility] [address] [place] [address] Dr. Jayne Pedraza Sodium [Moles/Vol] 137 mmol/L Normal 137-145 [facility] Comment on above: Performed By: #### T SH, LIPID, CMP #### [facility] [address] [place] [address] Dr. Jayne Pedraza Urea nitrogen [Mass/Vol] 19.0 mg/dL Normal 9.0-20.0 [facility] Comment on above: Performed By: #### T SH, LIPID, CMP #### [facility] [address] [address] [address] Jayne Pedraza Urea nitrogen/Creatinine [Mass ratio] 17.4 mg/mg Normal [facility] Comment on above: Performed By: #### T SH, LIPID, CMP #### [facility] [address] [address] [address] Jayne Pedraza TSHon 01-18-2021 TSH 1.230 uIU/mL Normal 0.470-4.[address] [facility] Comment on above: Performed By: #### T SH, LIPID, CMP #### [facility] [address] [address] [address] Jayne Pedraza TSH RANGE SEE BELOW Normal [facility] Comment on above: Result Comment: <0.3 4 UIU/ml HYPERTHYROID 0.34-5.60 UIU/ml EUTHYROID >5.60 UIU/ml HYPOTHYROID Performed By: #### T SH, LIPID, CMP #### [facility] [address] [address] [address] Jayne Pedraza Vital Signs Date Time Vital Sign Value Performing Clinician Faci lity 08-18-2023 14: Body height 182.88 cm [facility] 08-18-2023 14:21040 Body mass index (BMI) [Ratio] 36.1 kg/m2 [facility] 08-18-2023 14:040 Body temperature 99.6 [degF] [facility] 08-18-2023 14:21040 Body weight 120.71 kg [facility] 08-18-2023 14:210400 Diastolic blood pressure 88 mm[Hg] [facility] 08-18-2023 14:0400 Heart rate 90 /min [facility] 08-18-2023 14:040 Respiratory rate 16 /min [facility] 08-18-2023 14:210400 SaO2% (BldA) [Mass fraction] 97 % [facility] 08-18-2023 14:21-0400 Systolic blood pressure 158 mm[Hg] [facility] Encounters Encounter Date Encounter Type Care Provider Facility Start: 01-11-2024 End: 01-12-2024 Emergency department patient visit DAIANA MALLOY [facility] Start: 08-18-2023 End: 08-18-2023 ambulatory [facility] Work Phone: Start: 08-18-2023 End: 08-18-2023 Patient encounter procedure [facility] Work Phone: Start: 07-16-2023 End: 07-17-2023 Emergency department patient visit EMMIE Suggs SUMANTH [facility] Start: 01-18-2021 End: 01-19-[facility] Facility: Payers Date Payer Category Payer Private Health Insurance [id number] 2000 Unknown [id number] 2.16.8 [id number] 1999 Unknown [id number] 2.16.8 [id number] 1999 Unknown [id number] 2.16.8 [id number] 1999 Unknown [id number] 2.16.8 [id number] 1999 Unknown [id number] 2.16.8 [id number] 1960 Self-pay 1960 Self-pay [id number] Unknown [id number] 2.16.84 [id number] Unknown [id number] 2.16.84 [id number] Social History Date Type Detail Facility Start: [facility]23 [facility] Start: 2000 Sex Assigned At Male [facility] Clinical Note 01-18-2021 Note Date & Type Note Facility 01-18-2021 Note EXAMINATION: XR CHES T 2 V HISTORY: History and physical examination, pre-employment COMPARISON: No relevant comparison available. TECHNIQUE: PA and lateral FINDINGS: LUNGS: No significant pulmonary parenchymal abnormalities. VASCULATURE: No increased pulmonary vasculature. PLEURA: No pneumothorax, effusion, or pleural thickening. CARDIAC: No cardiomegaly or cardiac silhouette abnormality. MEDIASTINUM: No visible mass or adenopathy. BONES: No fracture or visible bone lesion. OTHER: Negative. IMPRESSION: No acute disease. Electronically authenticated by: FLORA TALBERT Date: 2021-01-18 13:02 [facility] Evaluation note Note Date & Type Note Facility Evaluation note No assessment information availa [facility] Work Phone: Summary Purpose Family History No Family History Records FoundNo Family History Records FoundNo Family History Records Found Advance Directives No Advanced Directives Records Found Advance Directive Response Recorded Date/ Time Advance Directives No August 17 024 2:10pm Chief Complaint and Reason for Visit Chief Complaint Cough, congestion Additional Source Comments (unrecognized sect ion and content) No Status Records FoundNo Status Records FoundNo Status Records Found INFORMATION SOURCE (unrecogn ized section and content) DATE CREATED AUTHOR 03/02/2021 [facility] DATE CREATED AUTHOR AUTHOR'S ORGANIZ ATION 09/21/2021 [facility] DATE CREATED AUTHOR AUTHOR'S ORGANIZ ATION 01/13/2024 [facility] Care Teams (unrecognized sec tion and content) Team Status: Active Member Role Status Dates NON STAFF Primary Care Provider Active Team Status: Inactive Member Role Status Dates Daiana Brooks APRN Attending Provider Active Start: August 18, 2023 End: August 18, 2023 NON STAFF Primary Care Provider Active Start: August 18, 2023 End: August 18, 2023 Goals (unrecognized section and content) Goals may be documented in a n alternate section FOR RECORDS PERTAINING TO PATIENTS WHO ARE OR HAVE BEEN ENROLLED IN A CHEMICAL DEPENDENCY/SUBSTANCEABUSE PROGRAM, SOME INFORMATION MAY BE OMITTED. This clinical summary was aggregated from multiple sources. Caution should be exercised in using it in the provision of clinical care. This summary normalizes information from multiple sources, and as a consequence, information in this document may materially change the coding, format and clinical context of patient data. In addition, data may be omitted in some cases. CLINICAL DECISIONS SHOULD BE BASED ON THE PRIMARY CLINICAL RECORDS. [employer] [facility]. provides no warranty or guarantee of the accuracy or completeness of information in this document.
== END 2024-02-05 07:48 | disposition home or self-care (01) ==
LOC: RAD 07:47
PROVIDERS: Visit Provider Podiatrist Foot & Ankle Surgery
DX: M25.571 Pain in right ankle and joints of right foot (principal); Z98.890 Other specified postprocedural states
CPT/HCPCS: 73610

== ENCOUNTER 2024-02-25 09:00 | Outpatient (OUT) | payer OTHER, SELFPAY ==
--- NOTE | 2024-02-25 | XR_ITS ---
The [address] [address] Patient Name: VIVIEN FITZPATRICK MRN: [id number] date: 2000 Sex: M Assigned Patient Location: [facility] Current Patient Location: Accession/Order Number: [id number] Exam Date: 02/25/2024 09:01 Report Date: 02/27/2024 06:42 At the request of: RADHA GENTILE Procedure: XR ankle RT min 3V PROCEDURE: XR ankle RT min 3V HISTORY: RIGHT ANKLE PAIN COMPARISON: XR ankle right 02/05/2024 FINDINGS: BONES:Mechanical repair of prior lateral malleolus fracture via a lateral plate and screws; no appreciable hardware fracture loosening. Minimal residual evidence of prior fracture line. Band fusion of the distal tibia-fibular syndesmosis. Persistent small separate ossification at tip of medial malleolus. SOFT TISSUES:No visible soft tissue swelling. EFFUSION:None visible. OTHER: Negative. XR/XR ankle RT min 3V IMPRESSION: 1. Stable surgical changes without is of hardware failure or change in alignment. Electronically authenticated by: MARY BUTLER Date: 02/27/2024 06:42
--- OUTSIDE RECORDS SUMMARY | 2024-02-25 09:10 | XMS_ITS | CCD ---
Author Organization [facility] Care Team Providers Care Senior Ruby Developer Name Role Phone GEOVANNI MALAVE Admitting Unavailable ROSIPKO GEOVANNI Primary Care Unavailable DENNIS MALAVEIN Consulting Unavailable GEOVANNI MALAVE Attending Unavailable DR FLORA TALBERT V Consulting Unavailable ANANDA GEOVANNI Primary Care Unavailable CARITO LINCOLN Admitting Unavailable CARITO LINCOLN Attending Unavailable CARITO LINCOLN Consulting Unavailable EMMIE JULIO Primary Care Unavailable TG CRUZ Attending Unavailable NO PCP, NO PCP Primary Care Unavailable DAIANA MALLOY Attending Unavailable DAIANA MALLOY Referring Unavailable NO PCP, NO PCP Primary Care Unavailable DAIANA MALLOY Attending Unavailable DAIANA MALLOY Referring Unavailable NO PCP, NO PCP Primary Care Unavailable Unavailable Primary Care Provider UnavailFERNANDA Lima Attending Unavailable Medications Current Medications Medication Drug Class(es) Dates Sig (Normalized) Sig (Original) acetaminophen 21.7 mg/ml / dextromethorphan hydrobromide 0.667 mg/ml / phenylephrine hydrochloride 0.333 mg/ml oral solution (1 source) Uncompetitive M-rmjbps-V-aspartat e Receptor Antagonist, Sigma-1 Agonist, alpha-1 Adrenergic Agonist Start: 08-18-2023 Phenylephrine-D m-Acetaminophen (Vicks Dayquil Cold-Flu Relief) 5-10-325 mg/15 mL liquid Active ML PO August 18, 2023 12:00am dextromethorphan hydrobromide 15 mg / guaiFENesin 400 mg / pseudoephedrine hydrochloride 60 mg oral tablet (1 source) alpha-Adrenergic Agonist, Uncompetitive Q-cexxfw-G-aspartat e Receptor Antagonist, Sigma-1 Agonist Start: 08-18-2023 [...] Onset: 01-18-2021 Episodic Fracture of lower limb (2 sources) Displaced comminuted fracture of shaft of unspecified fibula, initial encounter for closed fracture; Translations: [Closed fracture of right ankle] Onset: 01-11-2024 02-20-2024 Episodic Other circulatory disease (1 source) Elevated blood-pressure reading, without diagnosis of hypertension; Translations: [ELEVATED BP READING W/O DX HTN] Onset: 03-01-2021 Episodic Other non-traumatic joint disorders (1 source) Ankle pain; Translations: [Pain in right ankle and joints of right foot] 02-20-2024 Episodic Other screening for suspected conditions (not [...] Donis DO on 01/11/2024 9:01 PM Normal [facility] XR FOOT RT MIN 3 VWSon [...] Jasmine MD on 01/11/2024 8:58 PM Normal [facility] XR TIBIA FIBULA RT MIN 2 [...] Bobo MD on 01/11/2024 9:23 PM Normal [facility] CBC AND AUTO DIFFon 07-16-19 ABSOLUTE BASOPHIL 0.1 X10E9/L Normal 0.0-0.2 [facility] Comment on above: Performed By: #### C BCA, CMP, 95291-8 #### [facility] ([id number]) [address] [place] [address] [place] [address] ABSOLUTE NEUTROPHIL 4.6 X10E9/L Normal 1.5-6.6 [facility] Comment on above: Performed By: #### Nichole GOODE CMP, 90282-3 #### [facility] ([id number]) [address] [place] [address] 00777 Basophils/100 WBC (Bld) 0.8 % Normal [facility] Comment on above: Performed By: #### Nichole GOODE CMP, 47355-5 #### [facility] ([id number]) [address] [place] [address] 00899 Eosinophils (Bld) [#/Vol] 0.1 10*3/uL Normal 0.0-0.4 [facility] Comment on above: Performed By: #### Nichole GOODE CMP, 97267-7 #### [facility] ([id number]) [address] [place] [address] 83645 Eosinophils/100 WBC (Bld) 1.1 % Normal [facility] Comment on above: Performed By: #### Nichole GOODE CMP, 43298-9 #### [facility] ([id number]) [address] [place] [address] 10430 Erythrocyte distribution width (RBC) [Ratio] 12.9 % Normal 11.5-15.0 [facility] Comment on above: Performed By: #### Nichole GOODE CMP, 53828-8 #### [facility] ([id number]) [address] [place] [address] 04214 Hematocrit (Bld) [Volume fraction] 43.6 % Normal 39-49 [facility] Comment on above: Performed By: #### Nichole GOODE CMP, 14907-0 #### [facility] ([id number]) [address] [place] [address] 12306 Hemoglobin (Bld) [Mass/Vol] 15.0 g/dL Normal 13.0-17.0 [facility] Comment on above: Performed By: #### Nichole GOODE, CMP, 78059-9 #### [facility] ([id number]) [address] [place] [address] 16279 Lymphocytes (Bld) [#/Vol] 2.9 10*3/uL Normal 1.0-3.5 [facility] Comment on above: Performed By: #### Nichole GOODE, CMP, 61427-4 #### [facility] ([id number]) [address] [place] [address] 02440 Lymphocytes/100 WBC (Bld) 35.1 % Normal [facility] Comment on above: Performed By: #### Nichole GOODE, CMP, 14066-4 #### [facility] ([id number]) [address] [place] [address] 61602 MCH (RBC) [Entitic mass] 28.7 pg Normal 27-34 [facility] Comment on above: Performed By: #### Nichole GOODE, CMP, 35035-0 #### [facility] ([id number]) [address] [place] [address] 31151 MCHC (RBC) [Mass/Vol] 34.5 g/dL Normal 32-36 [facility] Comment on above: Performed By: #### Nichole GOODE CMP, 94889-5 #### [facility] ([id number]) [address] [place] [address] 08261 MCV (RBC) [Entitic vol] 83 fL Normal 80-100 [facility] Comment on above: Performed By: #### Nichole GOODE, CMP, 08304-7 #### [facility] ([id number]) [address] [place] [address] 05160 Monocytes (Bld) [#/Vol] 0.6 10*3/uL Normal 0-0.9 [facility] Comment on above: Performed By: #### C BCA, CMP, 10776-3 #### [facility] ([id number]) [address] [place] [address] 69132 Monocytes/100 WBC (Bld) 6.8 % Normal [facility] Comment on above: Performed By: #### C BCA, CMP, 07586-0 #### [facility] ([id number]) [address] [place] [address] 63993 Neutrophils/100 WBC (Bld) 56.2 % Normal [facility] Comment on above: Performed By: #### C BCA, CMP, 76026-5 #### [facility] ([id number]) [address] [place] [address] 81859 Platelet mean volume (Bld) [Entitic vol] 8.6 fL Normal 7-12 [facility] Comment on above: Performed By: #### C RUPA, CMP, 80370-0 #### [facility] ([id number]) [address] [place] [address] 01037 Platelets (Bld) [#/Vol] 220 10*3/uL Normal 150-450 [facility] Comment on above: Performed By: #### C BCA, CMP, 04226-0 #### [facility] ([id number]) [address] [place] [address] 58220 RBC COUNT 5.24 X10E12/L Normal 4.10-5.70 [facility] Comment on above: Performed By: #### C BCA, CMP, 15629-9 #### [facility] ([id number]) [address] [place] [address] 19917 WBC (Bld) [#/Vol] 8.2 10*3/uL Normal 4.0-11.0 [facility] Comment on above: Performed By: #### C BCA, CMP, 06552-5 #### [facility] ([id number]) [address] [place] [address] 71634 COMPREHENSIVE METABOLIC PANE Steven 07-16-2023 Albumin [Mass/Vol] 5.3 g/dL Normal 3.2-5.3 [facility] Comment on above: Performed By: #### C RUPA CMP, 22048-7 #### [facility] ([id number]) [address] [place] [address] 37030 ALP [Catalytic activity/Vol] 80 U/L Normal 39-130 [facility] Comment on above: Performed By: #### C RUPA CMP, 93429-0 #### [facility] ([id number]) [address] [place] [address] 72391 ALT [Catalytic activity/Vol] 25 U/L Normal 0-40 [facility] Comment on above: Performed By: #### C VARINDER GOODE, 06383-8 #### [facility] ([id number]) [address] [place] [address] 61857 Anion gap [Moles/Vol] 9 mmol/L Normal 5-15 [facility] Comment on above: Performed By: #### C VARINDER GOODE, 23975-5 #### [facility] ([id number]) [address] [place] [address] 71904 AST [Catalytic activity/Vol] 25 U/L Normal 0-41 [facility] Comment on above: Performed By: #### C RUPA CMP, 53042-2 #### [facility] ([id number]) [address] [place] [address] 33017 Bilirubin [Mass/Vol] 0.7 mg/dL Normal 0.3-1.2 [facility] Comment on above: Performed By: #### C RUPA, CMP, 72024-3 #### [facility] ([id number]) [address] [place] [address] 78533 Calcium [Mass/Vol] 9.1 mg/dL Normal 8.5-10.5 [facility] Comment on above: Performed By: #### C RUPA, CMP, 60286-8 #### [facility] ([id number]) [address] [place] [address] 75029 Chloride [Moles/Vol] 98 mmol/L Normal 98-109 [facility] Comment on above: Performed By: #### C RUPA CMP, 03168-6 #### [facility] ([id number]) [address] [place] [address] 44496 CO2 [Moles/Vol] 26 mmol/L Normal 22-32 [facility] Comment on above: Performed By: #### Nichole GOODE, VARINDER, 76652-7 #### [facility] ([id number]) [address] [place] [address] 11509 Creatinine [Mass/Vol] 1.29 mg/dL High 0.70-1.20 [facility] Comment on above: Result Comment: METH OD TRACEABLE TO IDMS STANDARD Performed By: #### Nichole GOODE CMP, 19068-3 #### [facility] ([id number]) [address] [place] [address] 28535 GFR/1.73 sq M.predicted among non-blacks MDRD (S/P/Bld) [Vol rate/Area] 80 mL/min/{1.73_m2} Normal >59 [facility] Comment on above: Result Comment: Reported eGFR is based on the CKD-EPI 1 equation that does not use a race coefficient. Performed By: #### C RUPA CMP, 73356-3 #### [facility] ([id number]) [address] [place] [address] 03233 Glucose [Mass/Vol] 97 mg/dL Normal 65-99 [facility] Comment on above: Performed By: #### Nichole GOODE, CMP, 88957-9 #### [facility] ([id number]) [address] [place] [address] 29706 Potassium [Moles/Vol] 3.6 mmol/L Normal 3.5-5.0 [facility] Comment on above: Performed By: #### Nichole GOODE CMP, 89117-1 #### [facility] ([id number]) [address] [place] [address] 08580 Protein [Mass/Vol] 8.2 g/dL High 6.0-8.0 [facility] Comment on above: Performed By: #### Nichole GOODE CMP, 63547-9 #### [facility] ([id number]) [address] [place] [address] 72013 Sodium [Moles/Vol] 133 mmol/L Low 134-146 [facility] Comment on above: Performed By: #### Nichole GOODE CMP, 45588-0 #### [facility] ([id number]) [address] [place] [address] 05702 Urea nitrogen [Mass/Vol] 22 mg/dL Normal 5-23 [facility] Comment on above: Performed By: #### Nichole GOODE CMP, 18302-5 #### [facility] ([id number]) [address] [place] [address] 83795 TROPONIN Ion 07-16-2023 Troponin I.cardiac [Mass/Vol] 0.01 ng/mL Normal 0.00-0.04 [facility] Comment on above: Performed By: #### Nichole GOODE CMP, 11322-2 #### [facility] ([id number]) [address] [place] [address] 15241 Outside Recordson 09-12-2021 Outside Records Response from [facility] stating patient needs to sign record release form in order to send records. [Electronically Signed on: 09/12/2021 08:16 EDT] Jie Browne [Verified on: 09/12/2021 08:16 EDT] Jie Browne Called pt , he will be stopping in next week to sign release. [Electronically Signed on: 09/20/2021 13:53 EDT] Jie Browne Normal [facility] CBC AUTO DIFFon 01-18-2021 BASO # 0.0 103/ul Normal 0.0-0.1 [facility] Comment on above: Performed By: #### C BC #### [facility] [address] [place] [address] Dr. Jayne Pedraza Basophils/100 WBC (Bld) 0.4 % Normal 0.2-2.0 [facility] Comment on above: Performed By: #### C BC #### [facility] [address] [place] [address] Dr. Jayne Pedraza EO # 0.1 103/ul Normal 0.0-0.7 [facility] Comment on above: Performed By: #### C BC #### [facility] [address] [place] [address] Dr. Jayne Pedraza Eosinophils/100 WBC (Bld) 0.9 % Normal 0.9-7.0 [facility] Comment on above: Performed By: #### C BC #### [facility] [address] [place] [address] Dr. Jayne Pedraza Erythrocyte distribution width (RBC) [Ratio] 12.0 % Normal 11.0-15.0 [facility] Comment on above: Performed By: #### C BC #### [facility] [address] [place] [address] Dr. Jayne Pedraza Hematocrit (Bld) [Volume fraction] 45.7 % Normal 42.0-54.0 [facility] Comment on above: Performed By: #### C BC #### [facility] [address] [address] [address] Jayne Pedraza Hemoglobin (Bld) [Mass/Vol] 14.8 g/dL Normal 14.0-18.0 [facility] Comment on above: Performed By: #### C BC #### [facility] [address] [place] [address] Dr. Jayne Pedraza IG # 0.07 10e3/ul Critically high 0.00-0.03 [facility] Comment on above: Performed By: #### C BC #### [facility] [address] [place] [address] Dr. Jayne Pedraza IG % 0.7 % Critically high 0.0-0.5 [facility] Comment on above: Performed By: #### C BC #### [facility] [address] [place] [address] Dr. Jayne Pedraza LYMPH # 1.5 103/ul Normal 1.2-3.8 [facility] Comment on above: Performed By: #### C BC #### [facility] [address] [place] [address] Dr. Jayne Pedraza Lymphocytes/100 WBC (Bld) 16.0 % Critically low 20.5-60.0 [facility] Comment on above: Performed By: #### C BC #### [facility] [address] [place] [address] Dr. Jayne Pedraza MANUAL DIFF REQ NO Normal [facility] Comment on above: Performed By: #### C BC #### [facility] [address] [place] [address] Dr. Jayne Pedraza MCH (RBC) [Entitic mass] 28.0 pg Normal 25.9-34.0 [facility] Comment on above: Performed By: #### C BC #### [facility] [address] [place] [address] Dr. Jayne Pedraza MCHC (RBC) [Mass/Vol] 32.4 g/dL Normal 29.9-35.2 [facility] Comment on above: Performed By: #### C BC #### [facility] [id number] Jayne Pedraza MCV (RBC) [Entitic vol] 86.6 fL Normal 80.0-94.0 [facility] Comment on above: Performed By: #### C BC #### [facility] [address] [address] [address] Jayne Pedraza MONO # 0.7 103/ul Normal 0.3-0.8 [facility] Comment on above: Performed By: #### C BC #### [facility] [address] [address] [address] Janye Pedraza Monocytes/100 WBC (Bld) 7.6 % Normal 1.7-12.0 [facility] Comment on above: Performed By: #### C BC #### [facility] [address] [place] [address] Dr. Jayne Pedraza NEUT # 7.2 103/ul Critically high 1.4-6.5 [facility] Comment on above: Performed By: #### C BC #### [facility] [address] [place] [address] Dr. Jayne Pedraza Neutrophils/100 WBC (Bld) 74.4 % Normal 43.0-75.0 [facility] Comment on above: Performed By: #### C BC #### [facility] [address] [place] [address] Dr. Jayne Pedraza Platelet mean volume (Bld) [Entitic vol] 10.0 fL Normal 9.5-13.5 [facility] Comment on above: Performed By: #### C BC #### [facility] [address] [place] [address] Dr. Jayne Pedraza PLT 241 103/ul Normal 150-450 [facility] Comment on above: Performed By: #### C BC #### [facility] [address] [place] [address] Dr. Jayne Pedraza RBC 5.28 106/ul Normal 4.70-6.10 [facility] Comment on above: Performed By: #### C BC #### [facility] [address] [place] [address] Dr. Jayne Pedraza WBC 9.6 103/ul Normal 4.0-11.0 [facility] Comment on above: Performed By: #### C BC #### [facility] [address] [place] [address] Dr. Jayne Pedraza DIRECT LDLon 01-18-2021 Cholesterol in LDL [Mass/Vol] 80 mg/dL Normal [facility] Comment on above: Performed By: #### D LDL #### [facility] [address] [place] [address] Dr. Jayne Pedraza DLDL NORMAL SEE BELOW Normal [facility] Comment on above: Result Comment: <100 mg/dl OPTIMAL 100 - 129 mg/dl NEAR OR ABOVE OPTIMAL 130 - 159 mg/dl BORDERLINE HIGH 160 - 189 mg/dl HIGH >190 mg/dl VERY HIGH Performed By: #### D LDL #### [facility] [address] [place] [address] Dr. Jayne Pedraza LIPID PROFILEon 01-18-2021 CHOL-HDL RATIO NORM SEE BELOW Normal [facility] Comment on above: Result Comment: 3.3 - 4.4 LOW RISK 4.4 - 7.1 AVERAGE RISK 7.1 - 11.0 MODERATE RISK >11.0 HIGH RISK Performed By: #### T SH, LIPID, CMP #### [facility] [address] [place] [address] Dr. Jayne Pedraza Cholesterol [Mass/Vol] 133 mg/dL Normal <=200 [facility] Comment on above: Performed By: #### T SH, LIPID, CMP #### [facility] [address] [place] [address] Dr. Jayne Pedraza Cholesterol in HDL [Mass/Vol] 31 mg/dL Normal [facility] Comment on above: Performed By: #### T SH, LIPID, CMP #### [facility] [address] [place] [address] Dr. Jayne Pedraza Cholesterol in LDL [Mass/Vol] 70.4 mg/dL Normal [facility] Comment on above: Performed By: #### T SH, LIPID, CMP #### [facility] [address] [place] [address] Dr. Jayne Pedraza Cholesterol.total/C holesterol in HDL [Mass ratio] 4.3 {ratio} Normal [facility] Comment on above: Performed By: #### T CRALA, LIPID, CMP #### [facility] [address] [place] [address] Dr. Jayne Pedraza HDL NORMAL > or = 60 mg/dl - LOW CARDIOVASCULAR RISK <40 mg/dl - HIGH CARDIOVASCULAR RISK Normal [facility] Comment on above: Performed By: #### T CARLA, LIPID, CMP #### [facility] [address] [place] [address] Dr. Jayne Pedraza LDL CALC NORMAL SEE BELOW Normal [facility] Comment on above: Result Comment: <100 mg/dl OPTIMAL 100 - 129 mg/dl NEAR OR ABOVE OPTIMAL 130 - 159 mg/dl BORDERLINE HIGH 160 - 189 mg/dl HIGH >190 mg/dl VERY HIGH Performed By: #### T CARLA, LIPID, CMP #### [facility] [address] [place] [address] Dr. Jayne Pedraza Triglyceride [Mass/Vol] 158 mg/dL Critically high <=150 [facility] Comment on above: Performed By: #### T CARLA, LIPID, CMP #### [facility] [address] [place] [address] Dr. Jayne Pedraza VLDL CALC 31.6 mg/dL Normal [facility] Comment on above: Performed By: #### T CARLA, LIPID, CMP #### [facility] [address] [place] [address] Dr. Jayne Pedraza PROF 14(COMP METB)on 021 Albumin [Mass/Vol] 4.6 g/dL Normal 3.5-5.0 [facility] Comment on above: Performed By: #### T SH, LIPID, CMP #### [facility] [address] [place] [address] Dr. Jayne Pedraza Albumin/Globulin [Mass ratio] 1.2 {ratio} Normal [facility] Comment on above: Performed By: #### T CARLA, LIPID, CMP #### [facility] [address] [place] [address] Dr. Jayne Pedraza ALP [Catalytic activity/Vol] 88 U/L Normal 38-126 [facility] Comment on above: Performed By: #### T SH, LIPID, CMP #### [facility] [address] [place] [address] Dr. Jayne Pedraza ALT [Catalytic activity/Vol] 22 U/L Normal 21-72 [facility] Comment on above: Performed By: #### T SH, LIPID, CMP #### [facility] [address] [place] [address] Dr. Jayne Pedraza Anion gap [Moles/Vol] 13.5 mmol/L Normal [facility] Comment on above: Performed By: #### T SH, LIPID, CMP #### [facility] [address] [place] [address] Dr. Jayne Pedraza AST [Catalytic activity/Vol] 13 U/L Critically low 17-59 [facility] Comment on above: Performed By: #### T CARLA, LIPID, CMP #### [facility] [address] [place] [address] Dr. Jayne Pedraza Bilirubin [Mass/Vol] 0.7 mg/dL Normal 0.2-1.3 [facility] Comment on above: Performed By: #### T CARLA, LIPID, CMP #### [facility] [address] [place] [address] Dr. Jayne Pedraza Calcium [Mass/Vol] 10.1 mg/dL Normal 8.4-10.2 [facility] Comment on above: Performed By: #### T SH, LIPID, CMP #### [facility] [address] [place] [address] Dr. Jayne Pedraza Chloride [Moles/Vol] 100 mmol/L Normal 98-107 [facility] Comment on above: Performed By: #### T SH, LIPID, CMP #### [facility] [address] [place] [address] Dr. Jayne Pedraza CO2 [Moles/Vol] 27.8 mmol/L Normal 22.0-30.0 [facility] Comment on above: Performed By: #### T SH, LIPID, CMP #### [facility] [address] [place] [address] Dr. Jayne Pedraza Creatinine [Mass/Vol] 1.09 mg/dL Normal 0.66-1.25 [facility] Comment on above: Performed By: #### T SH, LIPID, CMP #### [facility] [address] [address] [address] Jayne Pedraza EGFR-AF SINGAPOREAN >60 Normal >=60 [facility] Comment on above: Performed By: #### T SH, LIPID, CMP #### [facility] [address] [address] [address] Jayne Pedraza EGFR-NON AF SINGAPOREAN >60 Normal >=60 [facility] Comment on above: Performed By: #### T SH, LIPID, CMP #### [facility] [address] [address] [address] Jayne Pedraza Globulin (S) [Mass/Vol] 3.7 g/dL Normal [facility] Comment on above: Performed By: #### T CARLA, LIPID, CMP #### [facility] [address] [address] [address] Jayne Pedraza Glucose [Mass/Vol] 93 mg/dL Normal 74-106 [facility] Comment on above: Performed By: #### T CARLA, LIPID, CMP #### [facility] [address] [address] [address] Jayne Pedraza Potassium [Moles/Vol] 4.3 mmol/L Normal 3.4-5.0 [facility] Comment on above: Performed By: #### T SH, LIPID, CMP #### [facility] [address] [address] [address] Jayne Pedraza Protein [Mass/Vol] 8.3 g/dL Critically high 6.1-8.2 [facility] Comment on above: Performed By: #### T SH, LIPID, CMP #### [facility] [address] [place] [address] Dr. Jayne Pedraza Sodium [Moles/Vol] 137 mmol/L Normal 137-145 [facility] Comment on above: Performed By: #### T SH, LIPID, CMP #### [facility] [address] [address] [address] Jayne Pedraza Urea nitrogen [Mass/Vol] 19.0 mg/dL Normal 9.0-20.0 [facility] Comment on above: Performed By: #### T SH, LIPID, CMP #### [facility] [address] [address] [address] Jayne Pedraza Urea nitrogen/Creatinine [Mass ratio] 17.4 mg/mg Normal [facility] Comment on above: Performed By: #### T SH, LIPID, CMP #### [facility] [address] [address] [address] Jayne Pedraza TSHon 01-18-2021 TSH 1.230 uIU/mL Normal 0.470-4.680 [facility] Comment on above: Performed By: #### T SH, LIPID, CMP #### [facility] [address] [address] [address] Jayne Pedraza TSH RANGE SEE BELOW Normal [facility] Comment on above: Result Comment: <0.3 4 UIU/ml HYPERTHYROID 0.34-5.60 UIU/ml EUTHYROID >5.60 UIU/ml HYPOTHYROID Performed By: #### T SH, LIPID, CMP #### [facility] [address] [address] [address] Jayne Pedraza Vital Signs Date Time Vital Sign Value Performing Clinician Faci lity 08-18-2023 14: Body height 182.88 cm [facility] 08-18-2023 14:040 Body mass index (BMI) [Ratio] 36.1 kg/m2 [facility] 08-18-2023 14:040 Body temperature 99.6 [degF] [facility] 08-18-2023 14: Body weight 120.71 kg [facility] 08-18-2023 14:040 Diastolic blood pressure 88 mm[Hg] [facility] 08-18-2023 14:210400 Heart rate 90 /min [facility] 08-18-2023 14:040 Respiratory rate 16 /min [facility] 08-18-2023 14:210400 SaO2% (BldA) [Mass fraction] 97 % [facility] 08-18-2023 14:0400 Systolic blood pressure 158 mm[Hg] [facility] Encounters Encounter Date Encounter Type Care Provider Facility Start: 02-20-2024 End: 02-20-2024 Bamboo flowsheet Fernanda Raya PT [facility] Start: 02-20-2024 End: 02-20-2024 Bamboo flowsheet Fernanda Raya PT [facility] Start: 02-20-2024 End: 02-20-2024 ambulatory Fernanda Raya PT [facility] Comment on above: Right ankle pain, un specified chronicity (Primary Dx); Closed fracture of right ankle, initial encounter Start: 01-11-2024 End: 01-12-2024 Emergency department patient visit DAIANA MALLOY [facility] Start: 08-18-2023 End: 08-18-2023 ambulatory [facility] Work Phone: Start: 08-18-2023 End: 08-18-2023 Patient encounter procedure [facility] [place] Work Phone: Start: 07-16-2023 End: 07-17-2023 Emergency department patient visit EMMIE Suggs SUMANTH [facility] Start: 01-18-2021 End: 01-19-2021 ambulatory GEOVANNI ALMEIDAKENJIAUBREY Facility: Plan of Treatment Date Care Activity Detail Author Start: 03-03-2024 End: 03-03-2024 ambulatory 03/03/2024 8:00 AM EST Treat ment [facility] [address] [place] [address] Fernanda Raya, PT [facility] Start: 02-27-2024 End: 02-27-2024 ambulatory 02/27/2024 8:00 AM EDT Treat ment [facility] [address] [place] [address] Fernanda Raya, PT [facility] Start: 02-25-2024 End: 02-25-2024 ambulatory 02/25/2024 8:00 AM EDT Treat ment [facility] [address] [place] [id number] Fernanda Raya, PT [facility] Payers Date Payer Category Payer Medicaid [employer] MED[employer] A DVANTAGE [id number] 2021 Private Health Insurance [id number] 1999 Unknown [id number] 1999 Unknown [id number] [id number] 1999 Unknown [id number] [id number] 1999 Unknown [id number] 9.2.1286 1999 Unknown [id number] [id number] 1999 Unknown [id number] 1959 Self-pay 1960 Self-pay [id number] Unknown [id number] Unknown [id number] Social History Date Type Detail Facility Start: 08-18-2023 [facility] Start: 2000 Sex [facility]igned At [facility] smoking consumption unknown [facility] Start: 2000 Sex assigned at Not on file [facility] Start: 07-11-2022 Gender identity Identifies as male gender (finding) [facility] Sexual orientation Not on file [facility] History of Present illness Narrative 02-20-2024 Fernanda Raya, PT - 02/20/2024 8:00 AM EDT Note Date & Type Note Facility 02-20-2024 History of Presen t illness Narrative Physical Therapy Evaluation Visit Patient Name: Johnny Raya Today's Date: 02/20/2024 Encounter Diagnoses Name Primary? Right ankle pain, unspecified chronicity Yes Closed fracture of right ankle, initial encounter Visit number: 1 Timed Code Treatment Minutes: 60 minutes Total Treatment Time: 60 minutes Time In: 0800 Time Out: 0900 History: Jan 10 he was standing on uneven ground. Threw a golf ball and right leg went out from under him. Pt states his ankle was out of place. Tried to pop it back in. Was unable to bear weight on right leg. Went to hospital and right ankle was broke. Underwent surgery on Jan 15. Was placed in splint for one week, hard cast for 2 weeks. Has been in CAM boot the last 2 weeks. Pt with WBAT with boot, NWB without boot. Pt states he continues with swelling right LE. RTD 02/25/24. Precautions: [place] Subjective: Right ankle Pain: 0/10 Objective: PT Evaluation (02/20/2024) Right ANKLE AROM: -12 degrees DF knee extended, -6 degrees DF with knee flexed, 6 degrees inversion, 8 degrees eversion PROM: 2 degrees DF knee extended, 4 degrees DF with knee flexed Strength: right ankle grossly 4-/5 within available ROM Palpation: no significant tenderness with palpation Special Test: N/A Treatment: Education: HEP education with demonstration, Educated on Eval Findings and POC Manual Therapy: (13 minutes) Passive ROM, Joint mobilization, Soft Tissue Mobilization, Myofascial Release, Muscle Energy Technique, Neural Mobilization, Myofascial Cupping, Dry Needling, IASTM, and Scar mobilization as needed. Manual stretching right ankle and STM to right achilles in prone. Therapeutic Exercise: (14 minutes) Strength, Endurance, Flexibility, ROM, HEP, Neural Mobilization, Power, and Core Stability as needed. Pt performed and instructed in home program this date; written instructions and pictures issued with good pt understanding. Therapeutic Activity: Exercises to improve dynamic activities, functional tasks, functional mobility to return to prior activity level as needed. Neuromuscular re-education: Balance Training, Muscle Facilitation, Dynamic Stability, Core Stabilization, and Blood Flow Restriction Training (BFRT) as needed. Modalities: Heat, Ice, Electrical Stimulation, Ultrasound, Cervical Mechanical Traction, Lumbar Mechanical Traction, Iontophoresis, and Fluidotherapy as needed. Assessment: Pt is 23 y/o male with s/p right ankle ORIF on 01/16/24. Pt currently ambulates with use of CAM boot on right LE. Limited ROM and strength noted right LE. Tightness noted right ankle joint. Pt will benefit from PT to improve strength and mobility in order to return to full work duty. Outcome Measure: Lower Extremity Functional Scale (LEFS): 61/80 Rehab Diagnosis: right ankle pain and weakness; difficulty walking Short Term Goal: To be met in 2 weeks Goal 1: Pt to be instructed in home exercise program. Goal 2: Pt to ambulate community distances in normal footwear. Correction Goals: To be met in 10 weeks Goal 1: Pt to report independence and compliance with home program. Goal 2: Pt to achieve 20 degrees of right ankle DF to assist with functional tasks such as squatting. Goal 3: Pt to achieve 5/5 strength right ankle PF to assist with functional mobility and stairs. Goal 4: Pt to score no less than 78/80 on LEFS indicating improved QOL. Pt will benefit from skilled PT for 2-3x/week from 02/20/2024 to 04/30/2024 to address the above impairments. I hereby deem this POC medically necessary. Please sign below. Date: documented in this encounter [facility] Clinical Note 01-18-2021 Note Date & Type [...] authenticated by: FLORA TALBERT Date: 2021-01-18 13:02 [facility] Evaluation note Note Date & Type Note Facility Evaluation note No assessment information availa [facility] Work Phone: Evaluation note Note Date & Type Note Facility Evaluation note Diagnosis Right ankle pain, unspecified chronicity- Primary Closed fracture of right ankle, initial encounter documented in this encounter [facility] Reason for visit Narrative Rehabilitation - Outpatient (Routine) - Authorized Note Date & Type Note Facility Reason for visit Narrative Specialty Diagnoses / Procedures Referred By Roddy ortez Referred To Contact Physical Therapy Diagnoses Pain in right ankle and joints of right foot Procedures ND PHYSICAL THERAPY EVALUATION LOW COMPLEX 20 MINS Elliott Stinson MD [address] [place] [address] Phone: tel: Fernanda Raya PT Referral ID Status Reason Start Date Expiration Date Visits Requested Visits Authorized [id number] Authorized Consult and Treat 02/20/2024 08/18/2024 30 30 [facility] Summary Purpose Family History No Family History [...] Records FoundNo Status Records FoundNo Status Records FoundNo Status Records Found INFORMATION SOURCE (unrecogn ized section and content) DATE CREATED AUTHOR 03/02/2021 [facility] DATE CREATED AUTHOR AUTHOR'S ORGANIZ ATION 09/21/[address] [facility] DATE CREATED AUTHOR AUTHOR'S ORGANIZ ATION 01/13/2024 [facility] DATE CREATED AUTHOR AUTHOR'S ORGANIZ ATION 02/21/2024 [facility] EP[employer] Care Teams (unrecognized sec tion and content) [...] BE BASED ON THE PRIMARY CLINICAL RECORDS. [facility]. provides no warranty or guarantee of the accuracy or completeness of information in this document.
== END 2024-02-25 09:01 | disposition home or self-care (01) ==
LOC: RAD 09:00
PROVIDERS: Visit Provider Podiatrist Foot & Ankle Surgery
DX: M25.571 Pain in right ankle and joints of right foot (principal); Z98.890 Other specified postprocedural states
CPT/HCPCS: 73610

== ENCOUNTER 2024-03-24 09:17 | Outpatient (OUT) | payer OTHER, SELFPAY ==
--- NOTE | 2024-03-24 09:19 | XR_ITS ---
The [address] [address] Patient Name: VIVIEN FITZPATRICK MRN: [id number] date: 2000 Sex: M Assigned Patient Location: RAD Current Patient Location: RAD Accession/Order Number: [id number] Exam Date: 03/24/2024 09:35 Report Date: 03/26/2024 09:31 At the request of: RADHA GENTILE Procedure: XR ankle RT min 3V PROCEDURE: XR ankle RT min 3V HISTORY: Right Ankle Pain COMPARISON: XR ankle right 02/25/2024 FINDINGS: BONES:Prior repair of distal fibula via a lateral plate and screws. Band effusion of distal syndesmosis. SOFT TISSUES:Mild soft tissue swelling surrounding the ankle. EFFUSION:None visible. OTHER: Negative. XR/XR ankle RT min 3V IMPRESSION: 1. Stable surgical changes without evidence of hardware failure or change in alignment. Electronically authenticated by: MARY BUTLER Date: 03/26/2024 09:31
--- OUTSIDE RECORDS SUMMARY | 2024-03-24 09:37 | XMS_ITS | CCD ---
Author Organization [facility] Care Team Providers Care School Counselor Name Role Phone ROSRONALD GEOVANNI Admitting Unavailable ROSIPKO, GEOVANNI Primary Care Unavailable ROSIPKO, GEOVANNI Consulting Unavailable ANANDA GEOVANNI Attending Unavailable DR FLORA TALBERT V Consulting Unavailable ROSIPKO, GEOVANNI Primary Care Unavailable CARITO LINCOLN Admitting Unavailable CARITO LINCOLN Attending Unavailable CARITO LINCOLN Consulting Unavailable EMMIE JULIO Primary Care Unavailable TG CRUZ Attending Unavailable NO PCP, NO PCP Primary Care Unavailable DAIANA MALLOY Attending Unavailable DAIANA AMLLOY Referring Unavailable NO PCP, NO PCP Primary Care Unavailable DAIANA MALLOY Attending Unavailable DAIANA MALLOY Referring Unavailable NO PCP, NO PCP Primary Care Unavailable Unavailable Primary Care Provider Unavailabl e FERNANDA RAYA Attending Unavailable FERNANDA RAYA Attending Unavailable RADHA STINSON Referring Unavailable FERNANDA RAYA Attending Unavailable RADHA STINSON Referring Unavailable FERNANDA RAYA Attending Unavailable RADHA STINSON Referring Unavailable RONI BECKHAM Attending Unavailable RADHA STINSON Referring Unavailable RONI BECKHAM Attending Unavailable RADHA STINSON Referring Unavailable FERNANDA RAYA Attending Unavailable RADHA STINSON Referring Unavailable FERNANDA RAYA Attending Unavailable RADHA STINSON Referring Unavailable FERNANDA RAYA Attending Unavailable RADHA STINSON Referring Unavailable Medications Current Medications Medication Drug Class(es) Dates Sig (Normalized) Sig (Original) acetaminophen 21.7 mg/ml / dextromethorphan hydrobromide 0.667 mg/ml / phenylephrine hydrochloride 0.333 mg/ml oral solution (1 source) Uncompetitive E-jcmliv-A-aspartat e Receptor Antagonist, Sigma-1 Agonist, alpha-1 Adrenergic Agonist Start: 08-18-2023 Phenylephrine-D m-Acetaminophen (Vicks Dayquil Cold-Flu Relief) 5-325 mg/15 mL liquid Active ML PO August 18, 2023 12:00am dextromethorphan hydrobromide 15 mg / guaiFENesin 400 mg / pseudoephedrine hydrochloride 60 mg oral tablet (1 source) alpha-Adrenergic Agonist, Uncompetitive R-czeoqm-K-aspartat e Receptor Antagonist, Sigma-1 Agonist Start: 08-18-2023 [...] Active 20 MG PO Twice daily 10 August 18, 2023 12:00am Problems Active Problems Problem Classification Problem Date Documented Da te Episodic/Chronic Administrative/social admission (4 sources) Encounter for pre-employment examination; Translations: [ENCOUNTER FOR PRE-EMPLOYMENT EXAM] Onset: 01-18-2021 Episodic Fracture of lower limb (10 sources) Displaced comminuted fracture of shaft of unspecified fibula, initial encounter for closed fracture; Translations: [Closed fracture of right ankle] Onset: 01-11-2024 02-20-2024 Episodic Other circulatory disease (1 source) Elevated blood-pressure reading, without diagnosis of hypertension; Translations: [ELEVATED BP READING W/O DX HTN] Onset: 03-01-2021 Episodic Other non-traumatic joint disorders (9 sources) Ankle pain; Translations: [Pain in right ankle [...] Donis DO on 01/11/2024 9:01 PM Normal [facility] XR FOOT RT MIN 3 VWSon 01-10 [...] Jasmine MD on 01/11/2024 8:58 PM Normal [facility] XR TIBIA FIBULA RT MIN 2 VWS [...] Bobo MD on 01/11/2024 9:23 PM Normal [facility] CBC AND AUTO DIFFon 07-16-19 ABSOLUTE BASOPHIL 0.1 X10E9/L Normal 0.0-0.2 [facility] Comment on above: Performed By: #### Nichole GOODE, CMP, 54372-5 #### [facility] ([id number]) [address] [place] [address] 73195 ABSOLUTE NEUTROPHIL 4.6 X10E9/L Normal 1.5-6.6 [facility] Comment on above: Performed By: #### Nichole GOODE CMP, 11089-7 #### [facility] ([id number]) [address] [place] [address] 24492 Basophils/100 WBC (Bld) 0.8 % Normal [facility] Comment on above: Performed By: #### Nichole GOODE, CMP, 25912-4 #### [facility] ([id number]) [address] [place] [address] 80371 Eosinophils (Bld) [#/Vol] 0.1 10*3/uL Normal 0.0-0.4 [facility] Comment on above: Performed By: #### Nichole GOODE, CMP, 13964-5 #### [facility] ([id number]) [address] [place] [address] 57757 Eosinophils/100 WBC (Bld) 1.1 % Normal [facility] Comment on above: Performed By: #### Nichole BCA, CMP, 49677-8 #### [facility] ([id number]) [address] [place] [address] 75500 Erythrocyte distribution width (RBC) [Ratio] 12.9 % Normal 11.5-15.0 [facility] Comment on above: Performed By: #### Nichole GOODE, CMP, 76328-8 #### [facility] ([id number]) [address] [place] [address] 87097 Hematocrit (Bld) [Volume fraction] 43.6 % Normal 39-49 [facility] Comment on above: Performed By: #### Nichole GOODE CMP, 28954-1 #### [facility] ([id number]) [address] [place] [address] 36018 Hemoglobin (Bld) [Mass/Vol] 15.0 g/dL Normal 13.0-17.0 [facility] Comment on above: Performed By: #### Nichole GOODE CMP, 30818-5 #### [facility] ([id number]) [address] [place] [address] 96153 Lymphocytes (Bld) [#/Vol] 2.9 10*3/uL Normal 1.0-3.5 [facility] Comment on above: Performed By: #### Nichole GOODE CMP, 71852-6 #### [facility] ([id number]) [address] [place] [address] 36480 Lymphocytes/100 WBC (Bld) 35.1 % Normal [facility] Comment on above: Performed By: #### Nichole GOODE CMP, 82404-4 #### [facility] ([id number]) [address] [place] [address] 20847 MCH (RBC) [Entitic mass] 28.7 pg Normal 27-34 [facility] Comment on above: Performed By: #### Nichole GOODE CMP, 66666-4 #### [facility] ([id number]) [address] [place] [address] 74288 MCHC (RBC) [Mass/Vol] 34.5 g/dL Normal 32-36 [facility] Comment on above: Performed By: #### Nichole GOODE CMP, 91888-9 #### [facility] ([id number]) [address] [place] [address] 55295 MCV (RBC) [Entitic vol] 83 fL Normal 80-100 [facility] Comment on above: Performed By: #### Nichole GOODE, CMP, 33970-7 #### [facility] ([id number]) [address] [place] [address] 00847 Monocytes (Bld) [#/Vol] 0.6 10*3/uL Normal 0-0.9 [facility] Comment on above: Performed By: #### Nichole GOODE, CMP, 17658-8 #### [facility] ([id number]) [address] [place] [address] 87411 Monocytes/100 WBC (Bld) 6.8 % Normal [facility] Comment on above: Performed By: #### Nichole GOODE, CMP, 10170-6 #### [facility] ([id number]) [address] [place] [address] 44440 Neutrophils/100 WBC (Bld) 56.2 % Normal [facility] Comment on above: Performed By: #### Nichole GOODE, CMP, 54896-4 #### [facility] ([id number]) [address] [place] [address] 62753 Platelet mean volume (Bld) [Entitic vol] 8.6 fL Normal 7-12 [facility] Comment on above: Performed By: #### Nichole GOODE CMP, 51572-9 #### [facility] ([id number]) [address] [place] [address] 16764 Platelets (Bld) [#/Vol] 220 10*3/uL Normal 150-450 [facility] Comment on above: Performed By: #### Nichole GOODE, CMP, 94904-9 #### [facility] ([id number]) [address] [place] [address] 24436 RBC COUNT 5.24 X10E12/L Normal 4.10-5.70 [facility] Comment on above: Performed By: #### Nichole GOODE, CMP, 37786-0 #### [facility] ([id number]) [address] [place] [address] 89837 WBC (Bld) [#/Vol] 8.2 10*3/uL Normal 4.0-11.0 [facility] Comment on above: Performed By: #### C BCA, CMP, 01109-3 #### [facility] ([id number]) [address] [place] [address] 76274 COMPREHENSIVE METABOLIC PANE Steven 07-16-2023 Albumin [Mass/Vol] 5.3 g/dL Normal 3.2-5.3 [facility] Comment on above: Performed By: #### C BCA, CMP, 13181-6 #### [facility] ([id number]) [address] [place] [address] 17402 ALP [Catalytic activity/Vol] 80 U/L Normal 39-130 [facility] Comment on above: Performed By: #### C BCA, CMP, 47271-3 #### [facility] ([id number]) [address] [place] [address] 23575 ALT [Catalytic activity/Vol] 25 U/L Normal 0-40 [facility] Comment on above: Performed By: #### C BCA, CMP, 37027-4 #### [facility] ([id number]) [address] [place] [address] 08018 Anion gap [Moles/Vol] 9 mmol/L Normal 5-15 [facility] Comment on above: Performed By: #### C BCA, CMP, 21981-4 #### [facility] ([id number]) [address] [place] [address] 60524 AST [Catalytic activity/Vol] 25 U/L Normal 0-41 [facility] Comment on above: Performed By: #### C BCA, CMP, 95750-7 #### [facility] ([id number]) [address] [place] [address] 50553 Bilirubin [Mass/Vol] 0.7 mg/dL Normal 0.3-1.2 [facility] Comment on above: Performed By: #### C RUPA CMP, 86981-1 #### [facility] ([id number]) [address] [place] [address] 31288 Calcium [Mass/Vol] 9.1 mg/dL Normal 8.5-10.5 [facility] Comment on above: Performed By: #### C RUPA [facility], 65618-4 #### [facility] ([id number]) [address] [place] [address] 40959 Chloride [Moles/Vol] 98 mmol/L Normal 98-109 [facility] Comment on above: Performed By: #### Nichole GOODE CMP, 93106-1 #### [facility] ([id number]) [address] [place] [address] 55238 CO2 [Moles/Vol] 26 mmol/L Normal 22-32 [facility] Comment on above: Performed By: #### C RUPA CMP, 55724-2 #### [facility] ([id number]) [address] [place] [address] 92212 Creatinine [Mass/Vol] 1.29 mg/dL High 0.70-1.20 [facility] Comment on above: Result Comment: METH OD TRACEABLE TO IDMS STANDARD Performed By: #### C RUPA, CMP, 26607-5 #### [facility] ([id number]) [address] [place] [address] 97047 GFR/1.73 sq M.predicted among non-blacks MDRD (S/P/Bld) [Vol rate/Area] 80 mL/min/{1.73_m2} Normal >59 [facility] Comment on above: Result Comment: Reported eGFR is based on the CKD-EPI 2020 equation that does not use a race coefficient. Performed By: #### C RUPA, CMP, 97778-5 #### [facility] ([id number]) [address] [place] [address] 72592 Glucose [Mass/Vol] 97 mg/dL Normal 65-99 [facility] Comment on above: Performed By: #### C BCA, CMP, 40556-0 #### [facility] ([id number]) [address] [place] [address] 83088 Potassium [Moles/Vol] 3.6 mmol/L Normal 3.5-5.0 [facility] Comment on above: Performed By: #### C RUPA, CMP, 37649-4 #### [facility] ([id number]) [address] [place] [address] 05376 Protein [Mass/Vol] 8.2 g/dL High 6.0-8.0 [facility] Comment on above: Performed By: #### C RUPA, CMP, 93722-9 #### [facility] ([id number]) [address] [place] [address] 82091 Sodium [Moles/Vol] 133 mmol/L Low 134-146 [facility] Comment on above: Performed By: #### C RUPA, CMP, 92169-2 #### [facility] ([id number]) [address] [place] [address] 69879 Urea nitrogen [Mass/Vol] 22 mg/dL Normal 5-23 [facility] Comment on above: Performed By: #### C BCA, CMP, 57553-5 #### [facility] ([id number]) [address] [place] [address] 32593 TROPONIN Ion 07-16-2023 Troponin I.cardiac [Mass/Vol] 0.01 ng/mL Normal 0.00-0.04 [facility] Comment on above: Performed By: #### C BCA, CMP, 00571-3 #### [facility] ([id number]) [address] [place] [address], [facility] [place] [address] Outside Recordson 09-12-2021 Outside Records Response from [facility] stating patient needs to sign record release form in order to send records. [Electronically Signed on: 09/12/2021 08:16 EDT] Jie Browne [Verified on: 09/12/2021 08:16 EDT] Jie Browne Called pt , he will be stopping in next week to sign release. [Electronically Signed on: 09/20/2021 13:53 EDT] Jie Browne [facility] CBC AUTO DIFFon 01-18-2021 BASO # 0.0 103/ul Normal 0.0-0.1 [facility] Comment on above: Performed By: #### C BC #### [facility] [address] [place] [address] Dr. Jayne Pedraza Basophils/100 WBC (Bld) 0.4 % Normal 0.2-2.0 [facility] Comment on above: Performed By: #### C BC #### [facility] [address] [place] [address] Dr. Jayne Pedraza EO # 0.1 103/ul Normal 0.0-0.7 [facility] Comment on above: Performed By: #### C BC #### [facility] [address] [place] [address] Dr. Jayne Pedraza Eosinophils/100 WBC (Bld) 0.9 % Normal 0.9-7.0 [facility] Comment on above: Performed By: #### C BC #### [facility] [address] [place] [address] Dr. Jayne Pedraza Erythrocyte distribution width (RBC) [Ratio] 12.0 % Normal 11.0-15.0 [facility] Comment on above: Performed By: #### C BC #### [facility] [address] [place] [address] Dr. Jayne Pedraza Hematocrit (Bld) [Volume fraction] 45.7 % Normal 42.0-54.0 [facility] Comment on above: Performed By: #### C BC #### [facility] [address] [place] [address] Dr. Jayne Pedraza Hemoglobin (Bld) [Mass/Vol] 14.8 g/dL Normal 14.0-18.0 [facility] Comment on above: Performed By: #### C BC #### [facility] [address] [place] [address] Dr. Jayne Pedraza IG # 0.07 10e3/ul Critically high 0.00-0.03 [facility] Comment on above: Performed By: #### C BC #### [facility] [address] [place] [address] Dr. Jayne Pedraza IG % 0.7 % Critically high 0.0-0.5 [facility] Comment on above: Performed By: #### C BC #### [facility] [address] [place] [address] Dr. Jayne Pedraza LYMPH # 1.5 103/ul Normal 1.2-3.8 [facility] Comment on above: Performed By: #### C BC #### [facility] [address] [place] [address] Dr. Jayne Pedraza Lymphocytes/100 WBC (Bld) 16.0 % Critically low 20.5-60.0 [facility] Comment on above: Performed By: #### C BC #### [facility] [address] [place] [address] Dr. Jayne Pedraza MANUAL DIFF REQ NO Normal [facility] Comment on above: Performed By: #### C BC #### [facility] [address] [place] [address] Dr. Jayne Pedraza MCH (RBC) [Entitic mass] 28.0 pg Normal 25.9-34.0 [facility] Comment on above: Performed By: #### C BC #### [facility] [address] [address] [address] Jayne Pedraza MCHC (RBC) [Mass/Vol] 32.4 g/dL Normal 29.9-35.2 [facility] Comment on above: Performed By: #### C BC #### [facility] [address] [place] [address] Dr. Jayne Pedraza MCV (RBC) [Entitic vol] 86.6 fL Normal 80.0-94.0 [facility] Comment on above: Performed By: #### C BC #### [facility] [address] [place] [address] Dr. Jayne Pedraza MONO # 0.7 103/ul Normal 0.3-0.8 [facility] Comment on above: Performed By: #### C BC #### [facility] [address] [place] [address] Dr. Jayne Pedraza Monocytes/100 WBC (Bld) 7.6 % Normal 1.7-12.0 [facility] Comment on above: Performed By: #### C BC #### [facility] [address] [place] [address] Dr. Jayne Pedraza NEUT # 7.2 103/ul Critically high 1.4-6.5 [facility] Comment on above: Performed By: #### C BC #### [facility] [address] [place] [address] Dr. Jayne Pedraza Neutrophils/100 WBC (Bld) 74.4 % Normal 43.0-75.0 [facility] Comment on above: Performed By: #### C BC #### [facility] [address] [place] [address] Dr. Jayne Pedraza Platelet mean volume (Bld) [Entitic vol] 10.0 fL Normal 9.5-13.5 [facility] Comment on above: Performed By: #### C BC #### [facility] [address] [address] [address] Jayne Pedraza PLT 241 103/ul Normal 150-450 [facility] Comment on above: Performed By: #### C BC #### [facility] [address] [place] [address] Dr. Jayne Pedraza RBC 5.28 106/ul Normal 4.70-6.10 [facility] Comment on above: Performed By: #### C BC #### [facility] [address] [place] [address] Dr. Jayne Pedraza WBC 9.6 103/ul Normal 4.0-11.0 [facility] Comment on above: Performed By: #### C BC #### [facility] [address] [place] [address] Dr. Jayne Pedraza DIRECT LDLon 01-18-2021 Cholesterol in LDL [Mass/Vol] 80 mg/dL Normal [facility] Comment on above: Performed By: #### D LDL #### [facility] [address] [place] [address] Dr. Jayne Pedraza DLDL NORMAL SEE BELOW Normal [facility] Comment on above: Result Comment: <100 mg/dl OPTIMAL 100 - 129 mg/dl NEAR OR ABOVE OPTIMAL 130 - 159 mg/dl BORDERLINE HIGH 160 - 189 mg/dl HIGH >190 mg/dl VERY HIGH Performed By: #### D LDL #### [facility] [address] [place] [address] Dr. Jayne Pedraza LIPID PROFILEon 01-18-2021 CHOL-HDL RATIO NORM SEE BELOW Normal [facility] Comment on above: Result Comment: 3.3 - 4.4 LOW RISK 4.4 - 7.1 AVERAGE RISK 7.1 - 11.0 MODERATE RISK >11.0 HIGH RISK Performed By: #### T SH, LIPID, CMP #### [facility] [address] [place] [address] Dr. Jayne Pedraza Cholesterol [Mass/Vol] 133 mg/dL Normal <=200 [facility] Comment on above: Performed By: #### T SH, LIPID, CMP #### [facility] [address] [place] [address] Dr. Jayne Pedraza Cholesterol in HDL [Mass/Vol] 31 mg/dL Normal [facility] Comment on above: Performed By: #### T SH, LIPID, CMP #### [facility] [address] [address] [address] Jayne Pedraza Cholesterol in LDL [Mass/Vol] 70.4 mg/dL Normal [facility] Comment on above: Performed By: #### T SH, LIPID, CMP #### [facility] [address] [address] [address] Jayne Pedraza Cholesterol.total/C holesterol in HDL [Mass ratio] 4.3 {ratio} Normal [facility] Comment on above: Performed By: #### T SH, LIPID, CMP #### [facility] [address] [address] [address] Jayne Pedraza HDL NORMAL > or = 60 mg/dl - LOW CARDIOVASCULAR RISK <40 mg/dl - HIGH CARDIOVASCULAR RISK Normal [facility] Comment on above: Performed By: #### T SH, LIPID, CMP #### [facility] [address] [place] [address] Dr. Jayne Pedraza LDL CALC NORMAL SEE BELOW Normal [facility] Comment on above: Result Comment: <100 mg/dl OPTIMAL 100 - 129 mg/dl NEAR OR ABOVE OPTIMAL 130 - 159 mg/dl BORDERLINE HIGH 160 - 189 mg/dl HIGH >190 mg/dl VERY HIGH Performed By: #### T SH, LIPID, CMP #### [facility] [address] [address] [address] Jayne Pedraza Triglyceride [Mass/Vol] 158 mg/dL Critically high <=150 [facility] Comment on above: Performed By: #### T SH, LIPID, CMP #### [facility] [address] [place] [address] Dr. Jayne Pedraza VLDL CALC 31.6 mg/dL Normal [facility] Comment on above: Performed By: #### T SH, LIPID, CMP #### [facility] [address] [place] [address] Dr. Jayne Pedraza PROF 14(COMP METB)on 021 Albumin [Mass/Vol] 4.6 g/dL Normal 3.5-5.0 [facility] Comment on above: Performed By: #### T SH, LIPID, CMP #### [facility] [address] [address] [address] Jayne Pedraza Albumin/Globulin [Mass ratio] 1.2 {ratio} Normal [facility] Comment on above: Performed By: #### T SH, LIPID, CMP #### [facility] [address] [address] [address] Jayne Pedraza ALP [Catalytic activity/Vol] 88 U/L Normal 38-126 [facility] Comment on above: Performed By: #### T SH, LIPID, CMP #### [facility] [address] [address] [address] Jayne Pedraza ALT [Catalytic activity/Vol] 22 U/L Normal 21-72 [facility] Comment on above: Performed By: #### T SH, LIPID, CMP #### [facility] [address] [place] [address] Dr. Jayne Pedraza Anion gap [Moles/Vol] 13.5 mmol/L Normal [facility] Comment on above: Performed By: #### T SH, LIPID, CMP #### [facility] [address] [place] [address] Dr. Jayne Pedraza AST [Catalytic activity/Vol] 13 U/L Critically low 17-59 [facility] Comment on above: Performed By: #### T SH, LIPID, CMP #### [facility] [address] [address] [address] Jayne Pedraza Bilirubin [Mass/Vol] 0.7 mg/dL Normal 0.2-1.3 [facility] Comment on above: Performed By: #### T SH, LIPID, CMP #### [facility] [address] [place] [address] Dr. Jayne Pedraza Calcium [Mass/Vol] 10.1 mg/dL Normal 8.4-10.2 [facility] Comment on above: Performed By: #### T SH, LIPID, CMP #### [facility] [address] [place] [address] Dr. Jayne Pedraza Chloride [Moles/Vol] 100 mmol/L Normal 98-107 [facility] Comment on above: Performed By: #### T SH, LIPID, CMP #### [facility] [address] [place] [address] Dr. Jayne Pedraza CO2 [Moles/Vol] 27.8 mmol/L Normal 22.0-30.0 [facility] Comment on above: Performed By: #### T SH, LIPID, CMP #### [facility] [address] [address] [address] Jayne Pedraza Creatinine [Mass/Vol] 1.09 mg/dL Normal 0.66-1.25 [facility] Comment on above: Performed By: #### T SH, LIPID, CMP #### [facility] [address] [place] [address] Dr. Jayne Pedraza EGFR-AF TURKS AND CAICOS ISLANDER >60 Normal >=60 [facility] Comment on above: Performed By: #### T SH, LIPID, CMP #### [facility] [address] [place] [address] Dr. Jayne Pedraza EGFR-NON AF TURKS AND CAICOS ISLANDER >60 Normal >=60 [facility] Comment on above: Performed By: #### T SH, LIPID, CMP #### [facility] [address] [place] [address] Dr. Jayne Pedraza Globulin (S) [Mass/Vol] 3.7 g/dL Normal [facility] Comment on above: Performed By: #### T SH, LIPID, CMP #### [facility] [address] [place] [address] Dr. Jayne Pedraza Glucose [Mass/Vol] 93 mg/dL Normal 74-106 [facility] Comment on above: Performed By: #### T SH, LIPID, CMP #### [facility] [address] [place] [address] Dr. Jayne Pedraza Potassium [Moles/Vol] 4.3 mmol/L Normal 3.4-5.0 [facility] Comment on above: Performed By: #### T SH, LIPID, CMP #### [facility] [address] [place] [address] Dr. Jayne Pedraza Protein [Mass/Vol] 8.3 g/dL Critically high 6.1-8.2 [facility] Comment on above: Performed By: #### T SH, LIPID, CMP #### [facility] [address] [place] [address] Dr. Jayne Pedraza Sodium [Moles/Vol] 137 mmol/L Normal 137-145 [facility] Comment on above: Performed By: #### T SH, LIPID, CMP #### [facility] [address] [place] [address] Dr. Jayne Pedraza Urea nitrogen [Mass/Vol] 19.0 mg/dL Normal 9.0-20.0 [facility] Comment on above: Performed By: #### T CARLA, LIPID, CMP #### [facility] [address] [place] [address] Dr. Jayne Pedraza Urea nitrogen/Creatinine [Mass ratio] 17.4 mg/mg Normal [facility] Comment on above: Performed By: #### T SH, LIPID, CMP #### [facility] [address] [place] [address] Dr. Jayne Pedraza TSHon 01-18-2021 TSH 1.230 uIU/mL Normal 0.470-4.680 [facility] Comment on above: Performed By: #### T SH, LIPID, CMP #### [facility] [address] [place] [address] Dr. Jayne Pedraza TSH RANGE SEE BELOW Normal [facility] Comment on above: Result Comment: <0.3 4 UIU/ml HYPERTHYROID 0.34-5.60 UIU/ml EUTHYROID >5.60 UIU/ml HYPOTHYROID Performed By: #### T SH, LIPID, CMP #### [facility] [address] [place] [address] Dr. Jayne Pedraza Vital Signs Date Time Vital Sign Value Performing Clinician Cameron rosales 08-18-2023 14: Body height 182.88 cm [facility] 08-18-2023 14:0400 Body mass index (BMI) [Ratio] 36.1 kg/m2 [facility] 08-18-2023 14:0400 Body temperature 99.6 [degF] [facility] 08-18-2023 14:0400 Body weight 120.71 kg [facility] 08-18-2023 14:-0400 Diastolic blood pressure 88 mm[Hg] [facility] 08-18-2023 14:-0400 Heart rate 90 /min [facility] 08-18-2023 14:040 Respiratory rate 16 /min [facility] 08-18-2023 14:0400 SaO2% (BldA) [Mass fraction] 97 % [facility] 08-18-2023 14:040 Systolic blood pressure 158 mm[Hg] [facility] Encounters Encounter Date Encounter Type Care Provider Facility Start: 03-20-2024 End: 03-20-2024 Bamboo flowsheet Fernanda Raya PT [facility] Start: 03-20-2024 End: 03-20-2024 Bamboo flowsheet Fernanda Raya PT [facility] Start: 03-20-2024 End: 03-20-2024 ambulatory Fernanda Raya PT [facility] Comment on above: Closed fracture of r ight ankle, initial encounter (Primary Dx); Right ankle pain, unspecified chronicity Start: 03-17-2024 End: 03-17-2024 Bamboo flowsheet Fernanda Raya PT [facility] Start: 03-17-2024 End: 03-17-2024 Bamboo flowsheet Fernanda Raya PT [facility] Start: 03-17-2024 End: 03-17-2024 ambulatory Fernanda Raya PT [facility] Comment on above: Closed fracture of r ight ankle, initial encounter (Primary Dx); Right ankle pain, unspecified chronicity Start: 03-12-2024 End: 03-12-2024 Bamboo flowsheet Fernanda Raya PT [facility] Start: 03-12-2024 End: 03-12-2024 Bamboo flowsheet Fernanda Raya PT [facility] Start: 03-12-2024 End: 03-12-2024 ambulatory Fernanda Raya PT [facility] Comment on above: Right ankle pain, un specified chronicity (Primary Dx); Closed fracture of right ankle, initial encounter Start: 03-10-2024 End: 03-10-2024 Bamboo flowsheet Roni Beckham HAND MODEL [facility] Start: 03-10-2024 End: 03-10-2024 Bamboo flowsheet Roni Beckham HAND MODEL [facility] Start: 03-10-2024 End: 03-10-2024 ambulatory Roni Beckham HAND MODEL [facility] Comment on above: Closed fracture of r ight ankle, initial encounter (Primary Dx); Right ankle pain, unspecified chronicity Start: 03-05-2024 End: 03-05-2024 Bamboo flowsheet Roni Beckham HAND MODEL [facility] Start: 03-05-2024 End: 03-05-2024 Bamboo flowsheet Roni Beckham HAND MODEL [facility] Start: 03-05-2024 End: 03-05-2024 ambulatory Roni Beckham HAND MODEL [facility] Comment on above: Closed fracture of r ight ankle, initial encounter (Primary Dx); Right ankle pain, unspecified chronicity Start: 03-03-2024 End: 03-03-2024 Bamboo flowsheet Fernanda Raya PT [facility] Start: 03-03-2024 End: 03-03-2024 Bamboo flowsheet Fernanda Raya PT [facility] Start: 03-03-2024 End: 03-03-2024 ambulatory Fernanda Raya PT [facility] Comment on above: Closed fracture of r ight ankle, initial encounter (Primary Dx); Right ankle pain, unspecified chronicity Start: 02-27-2024 End: 02-27-2024 Bamboo flowsheet Fernanda Raya PT [facility] Start: 02-27-2024 End: 02-27-2024 Bamboo flowsheet Fernanda Raya PT [facility] Start: 02-27-2024 End: 02-27-2024 ambulatory Fernanda Raya PT [facility] Comment on above: Closed fracture of r ight ankle, initial encounter (Primary Dx); Right ankle pain, unspecified chronicity Start: 02-25-2024 End: 02-25-2024 Bamboo flowsheet Fernanda Raya PT [facility] Start: 02-25-2024 End: 02-25-2024 Bamboo flowsheet Ferannda Raya PT [facility] Start: 02-25-2024 End: 02-25-2024 ambulatory Fernanda Raya PT [facility] Comment on above: Closed fracture of r ight ankle, initial encounter (Primary Dx); Right ankle pain, unspecified chronicity Start: 02-20-2024 End: 02-20-2024 Bamboo flowsheet Fernanda Raya PT [facility] Start: 02-20-2024 End: 02-20-2024 Bamboo flowsheet Fernanda Raya PT [facility] Start: 02-20-2024 End: 02-20-2024 ambulatory Fernanda Raya PT [facility] Comment on above: Right ankle pain, un specified chronicity (Primary Dx); Closed fracture of right ankle, initial encounter Start: 01-11-2024 End: 01-12-2024 Emergency department patient visit DAIANA MALLOY [facility] Start: 08-18-2023 End: 08-18-2023 ambulatory [facility] Work Phone: Start: 08-18-2023 End: 08-18-2023 Patient encounter procedure [facility] [place] Work Phone: Start: 07-16-2023 End: 07-17-2023 Emergency department patient visit EMMIE JULIO [facility] Start: 01-18-2021 End: 01-19-2021 ambulatory GEOVANNI MALAVE Facility: Plan of Treatment Date Care Activity Detail Author Start: 04-16-2024 End: 04-16-2024 ambulatory 04/16/2024 8:00 AM EST Treat ment [facility] [address] [facility] [address] [place] [address] Fernanda Raya, PT [facility] Start: 04-13-2024 End: 04-13-2024 ambulatory 04/13/2024 8:30 AM EST Treat ment [facility] [address] [place] [address] [place] [address] Fernanda Raya, PT [facility] Start: 04-10-2024 End: 04-10-2024 ambulatory 04/10/2024 7:00 AM EST Treat ment [facility] [address] [place] [address] [place] [address] Fernanda Raya, PT [facility] Start: 04-07-2024 End: 04-07-2024 ambulatory 04/07/2024 8:00 AM EST Treat ment [facility] [address] [facility] [address] [place] [address] Fernanda Raya, PT [facility] Start: 04-03-2024 End: 04-03-2024 ambulatory 04/03/2024 8:00 AM EST Treat ment [facility] [address] [facility] [address] [place] [address] Fernanda Raya, PT [facility] Start: 04-02-2024 End: 04-02-2024 ambulatory 04/02/2024 8:00 AM EST Treat ment [facility] [address] [facility] [address] [place] [address] Fernanda Raya, PT [facility] Start: 03-31-2024 End: 03-31-2024 ambulatory 03/31/2024 8:00 AM EST Treat ment [facility] [address] [facility] [address] [place] [address] Fernanda Raya, PT [facility] Start: 03-30-2024 End: 03-30-2024 ambulatory 03/30/2024 9:00 AM EST Treat ment [facility] [address] [facility] [address] [place] [address] Fernanda Raya, PT [facility] Start: 03-24-2024 End: 03-24-2024 ambulatory 03/24/2024 8:00 AM EST Treat ment [facility] [address] [facility] [address] [place] [address] Fernanda Raya, PT [facility] Start: 03-20-2024 End: 03-20-2024 ambulatory 03/20/2024 8:00 AM EST Treat ment [facility] [address] [place] [address] [place] [address] Fernanda Raya, PT [facility] Start: 03-19-2024 End: 03-19-2024 ambulatory 03/19/2024 8:00 AM EST Treat ment [facility] [address] [place] [address] [place] [address] Fernanda Raya, PT [facility] Start: 03-17-2024 End: 03-17-2024 ambulatory 03/17/2024 8:00 AM EST Treat ment [facility] [address] [place] [address] [place] [address] Fernanda Raya, PT [facility] Start: 03-12-2024 End: 03-12-2024 ambulatory 03/12/2024 8:00 AM EST Treat ment [facility] [address] [place] [address] [place] [address] Fernanda Raya, PT [facility] Start: 03-10-2024 End: 03-10-2024 ambulatory 03/10/2024 8:00 AM EST Treat ment [facility] [address] [place] [address] [place] [address] Roni Beckham, HAND MODEL [facility] Start: 03-05-2024 End: 03-05-2024 ambulatory 03/05/2024 8:00 AM EST Treat ment [facility] [address] [place] [address] [place] [address] Roni Beckham, HAND MODEL [facility] Start: 03-03-2024 End: 03-03-2024 ambulatory 03/03/2024 8:00 AM EST Treat ment [facility] [address] [place] [address] [place] [address] Fernanda Raya, PT [facility] Start: 02-27-2024 End: 02-27-2024 ambulatory 02/27/2024 8:00 AM EDT Treat ment [facility] [address] [place] [address] [place] [address] Fernanda Raya, PT [facility] Start: 02-25-2024 End: 02-25-2024 ambulatory [facility] Comment on above: Arrived Payers Date Payer Category Payer Managed Care HMO (unspecified) [employer] [id number] 2021 Medicaid [id number] 315 2021 Private Health Insurance [id number] 1999 Unknown [id number] 9.2.128 1999 Unknown [id number] 9.2.128 1999 Unknown [id number] [id number] 9.2.128 1999 Unknown [id number] [id number] 9.2.1285 1999 Unknown [id number] [id number] 9.2.128 1999 Unknown [id number] [id number] 9.2.1259 1999 Unknown [id number] [id number] 9.2.1259 1999 Unknown [id number] [id number] 9.2.1259 1999 Unknown [id number] [id number] 9.2.1259 1999 Unknown [id number] [id number] 9.2.1259 1999 Unknown [id number] [id number] 9.2.1259 1999 Unknown [id number] [id number] 9.2.1259 1999 Unknown [id number] [id number] 9.2.125 1999 Unknown [id number] [id number] 9.2.1259 1959 Self-pay 1959 Self-pay [id number] Unknown [id number] [id number] 9.2.593 Unknown [id number] [id number] 9.2.593 Social History Date Type Detail Facility Start: 08-18-2023 Tobacco smoking stat [facility] Never smoked tobacco (finding) [facility] Start: 2000 Sex Assigned At Male F [facility] Tobacco smoking stat [facility] Tobacco smoking consumption unknown [facility] Start: 1999 Sex assigned at Not on file [facility] Start: 07-11-2022 Gender identity Identifies as male gender (finding) [facility] Sexual orientation Not on file [facility] Clinical Notes 01-18-2021 to 03-20-2024 Fernanda Raya, PT - 03/20/2024 8:00 AM Sriram Raya, PT - 03/17/2024 8:00 AM Sriram Raya, PT - 03/12/2024 8:00 AM ESTRoni Beckham, HAND MODEL - 03/10/2024 8:00 AM EST Note Date & Type Note Facility 03-20-2024 History of Present illness Narrative Physical Therapy Treatment Visit Patient Name: Johnny Raya Today's Date: 03/20/2024 Encounter Diagnoses Name Primary? Closed fracture of right ankle, initial encounter Yes Right ankle pain, unspecified chronicity Visit number: 9 Timed Code Treatment Minutes: 60 minutes Total Treatment Time: 60 minutes Time In: 0800 Time Out: 09 History: Jan 10 he was standing on [...] with swelling right LE. RTD 02/25/24. Precautions: [place] Subjective: Pt states right ankle was a little sore following last session but no more than usual. 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 Pain: 0/10 Objective: PT Evaluation (02/20/2024) Right [...] on Eval Findings and POC Manual Therapy: (15 minutes) Passive ROM, Joint mobilization, Soft Tissue Mobilization, Myofascial Release, Muscle Energy Technique, Neural Mobilization, Myofascial Cupping, Dry Needling, IASTM, and Scar mobilization as needed. IASTM to right calf and achilles in prone. Manual stretching right ankle DF in prone. Therapeutic Exercise: (45 minutes) Strength, Endurance, Flexibility, ROM, HEP, Neural Mobilization, Power, and Core Stability as needed. Exercises per grid. Initiated jogging this date with ASO donned. Therapeutic Activity: Exercises to improve dynamic activities, functional tasks, functional mobility to return to prior activity level as needed. Neuromuscular re-education: Balance Training, Muscle Facilitation, Dynamic Stability, Core Stabilization, and Blood Flow Restriction Training (BFRT) as needed. Modalities: Heat, Ice, Electrical Stimulation, Ultrasound, Cervical Mechanical Traction, Lumbar Mechanical Traction, Iontophoresis, and Fluidotherapy as needed. Assessment: Pt has completed 9 PT sessions for right ankle fracture. Worked on ladder drills this date. Pt favors left LE with hopping exercises. Able to jog without use of ASO. Pt instructed to monitor swelling following today's visit. Will progress as appropriate. Follow up Mar 24 Outcome Measure: Lower Extremity Functional Scale (LEFS): 61/80 Rehab Diagnosis: right ankle pain and weakness; difficulty walking Short Term Goal: To be met in 2 weeks Goal 1: Pt to be instructed in home exercise program. Goal 2: Pt to ambulate community distances in normal footwear. Care Home Goals: To be met in 10 weeks [...] sign below. Date: documented in this encounter [facility] 03-17-2024 History of Present illness Narrative Physical Therapy Treatment Visit Patient Name: Johnny Raya Today's Date: 03/17/2024 Encounter Diagnoses Name Primary? Closed fracture of right ankle, initial encounter Yes Right ankle pain, unspecified chronicity Visit number: 8 Timed Code Treatment Minutes: 55 minutes Total Treatment Time: 55 minutes Time In: 0800 Time Out: 08 History: Jan 10 he was standing on [...] with swelling right LE. RTD 02/25/24. Precautions: [place] Subjective: Pt states right ankle continues to do well. Still does not feel like left ankle but getting better. Pain: 05/08 Objective: PT Evaluation (02/20/2024) Right ANKLE AROM: [...] on Eval Findings and POC Manual Therapy: (15 minutes) Passive ROM, Joint mobilization, Soft Tissue Mobilization, Myofascial Release, Muscle Energy Technique, Neural Mobilization, Myofascial Cupping, Dry Needling, IASTM, and Scar mobilization as needed. IASTM to right calf and achilles in prone. Manual stretching right ankle DF in prone. Therapeutic Exercise: (40 minutes) Strength, Endurance, Flexibility, ROM, HEP, Neural Mobilization, Power, and Core Stability as needed. Exercises per grid. Initiated jogging this date with ASO donned. Therapeutic Activity: Exercises to improve dynamic activities, functional tasks, functional mobility to return to prior activity level as needed. Neuromuscular re-education: Balance Training, Muscle Facilitation, Dynamic Stability, Core Stabilization, and Blood Flow Restriction Training (BFRT) as needed. Modalities: Heat, Ice, Electrical Stimulation, Ultrasound, Cervical Mechanical Traction, Lumbar Mechanical Traction, Iontophoresis, and Fluidotherapy as needed. Assessment: Pt has completed 8 PT sessions for right ankle fracture. Pt able to achieve 20 degrees of right ankle DF with knee flexed and overpressure. Able to jog on TM this date x 5 mins without complaints of pain. Follow up Mar 24 Outcome Measure: Lower Extremity Functional Scale (LEFS): 61/80 Rehab Diagnosis: right ankle pain and weakness; difficulty walking Short Term Goal: To be met in 2 weeks Goal 1: Pt to be instructed in home exercise program. Goal 2: Pt to ambulate community distances in normal footwear. Care Home Goals: To be met in 10 weeks [...] sign below. Date: documented in this encounter [facility] 03-12-2024 History of Present illness Narrative Physical Therapy Treatment Visit Patient Name: Johnny Raya Today's Date: 03/12/2024 Encounter Diagnoses Name Primary? Right ankle pain, unspecified chronicity Yes Closed fracture of right ankle, initial encounter Visit number: 7 Timed Code Treatment Minutes: 58 minutes Total Treatment Time: 58 minutes Time In: 0800 Time Out: 0900 [...] with swelling right LE. RTD 02/25/24. Precautions: [place] Subjective: Pt states he was in a bull [place] last night feeding animals. Bull came at him and he had to jump over gait. Pt states he hit right foot/ankle on gait on his way over. Had boots and brace on. Initially felt pain in right ankle but then felt fine the rest of the night. Was more stiff and achy this morning. Pain: 2-3 Objective: PT Evaluation (02/20/2024) Right ANKLE AROM: [...] on Eval Findings and POC Manual Therapy: (28 minutes) Passive ROM, Joint mobilization, Soft Tissue Mobilization, Myofascial Release, Muscle Energy Technique, Neural Mobilization, Myofascial Cupping, Dry Needling, IASTM, and Scar mobilization as needed. Manual distraction, grade II AP/PA mobs to [place] jt. in long sitting position. DTM to right achilles and manual stretching with pt in prone position. Therapeutic Exercise: (30 minutes) Strength, Endurance, Flexibility, ROM, HEP, Neural Mobilization, Power, and Core Stability as needed. Performed all exercises without use of ASO to focus on stability of right ankle. Worked on ankle ROM and strength for return to PLOF. Therapeutic Activity: Exercises to improve dynamic activities, functional tasks, functional mobility to return to prior activity level as needed. Neuromuscular re-education: Balance Training, Muscle Facilitation, Dynamic Stability, Core Stabilization, and Blood Flow Restriction Training (BFRT) as needed. Modalities: Heat, Ice, Electrical Stimulation, Ultrasound, Cervical Mechanical Traction, Lumbar Mechanical Traction, Iontophoresis, and Fluidotherapy as needed. Assessment: Pt has completed 7 PT sessions for right ankle fracture. Performed exercises without footwear this date to focus on right LE stability. Held several exercises due to pt catching right leg last night. Follow up Mar 24 Outcome Measure: Lower Extremity Functional Scale (LEFS): 61/80 Rehab Diagnosis: right ankle pain and weakness; difficulty walking Short Term Goal: To be met in 2 weeks Goal 1: Pt to be instructed in home exercise program. Goal 2: Pt to ambulate community distances in normal footwear. [address] Goals: To be met in 10 weeks [...] sign below. Date: documented in this encounter [facility] 03-10-2024 History of Present illness Narrative Physical Therapy Treatment Visit Patient Name: Johnny Raya Today's Date: 03/10/2024 Encounter Diagnoses Name Primary? Closed fracture of right ankle, initial encounter Yes Right ankle pain, unspecified chronicity Visit number: 5 Timed Code Treatment Minutes: 55 minutes Total Treatment Time: 55 minutes Time In: 0800 Time Out: 0859 History: Jan 10 he was standing on [...] with swelling right LE. RTD 02/25/24. Precautions: [place] Subjective: Pt states he is getting concerned with the stiffness in the AM. Educated that is a typical healing response. No adverse effect to last session. Pt has been active on ankle and feels that it is getting better. Pain: 0/10 Objective: PT Evaluation (02/20/2024) Right [...] on Eval Findings and POC Manual Therapy: (25 minutes) Passive ROM, Joint mobilization, Soft Tissue Mobilization, Myofascial Release, Muscle Energy Technique, Neural Mobilization, Myofascial Cupping, Dry Needling, IASTM, and Scar mobilization as needed. Manual distraction, grade II AP/PA mobs to [place] jt. in long sitting position. IASTM to right achilles and manual stretching with pt in prone position. Therapeutic Exercise: (30 minutes) Strength, Endurance, Flexibility, ROM, HEP, Neural Mobilization, Power, and Core Stability as needed. Performed all exercises without use of ASO to focus on stability of right ankle. Worked on ankle ROM and strength for return to PLOF. Therapeutic Activity: Exercises to improve dynamic activities, functional tasks, functional mobility to return to prior activity level as needed. Neuromuscular re-education: Balance Training, Muscle Facilitation, Dynamic Stability, Core Stabilization, and Blood Flow Restriction Training (BFRT) as needed. Modalities: Heat, Ice, Electrical Stimulation, Ultrasound, Cervical Mechanical Traction, Lumbar Mechanical Traction, Iontophoresis, and Fluidotherapy as needed. Assessment: Pt has completed 6 PT sessions for right ankle fracture. Less hip hiking noted during gait this date. Pt able to achieve 16 degrees of right ankle DF following manual therapy this date. Relief of pain/stiffness reported with talocrural distraction. Introducing ankle strengthening in the form of walking on toes (fwd/retro/lat). Pt tolerated progressions well. He was able to work on ankle stability. Follow up Mar 24 Outcome Measure: Lower Extremity Functional Scale (LEFS): 61/80 Rehab Diagnosis: right ankle pain and weakness; difficulty walking Short Term Goal: To be met in 2 weeks Goal 1: Pt to be instructed in home exercise program. Goal 2: Pt to ambulate community distances in normal footwear. [address] Goals: To be met in 10 weeks [...] POC medically necessary. Please sign below. Date: Cosigned by Fernanda Raya PT at 03/13/2024 1:08 PM EST documented in this encounter [facility] 03-03-2024 History of Present illness Narrative Physical Therapy Treatment Visit Patient Name: Johnny Raya Today's Date: 03/03/2024 Encounter Diagnoses Name Primary? Closed fracture of right ankle, initial encounter Yes Right ankle pain, unspecified chronicity Visit number: 4 Timed Code Treatment Minutes: 55 minutes Total Treatment Time: 55 minutes Time In: 0800 Time Out: 0859 History: Jan 10 he was standing on [...] with swelling right LE. RTD 02/25/24. Precautions: [place] Subjective: Pt states he tried running at home with brace on, went fairly well. Pt states he has been wearing ASO when on uneven surfaces. States ASO has been rubbing ankle and has small area of incision that opened. Pain: 0/10 Objective: PT Evaluation (02/20/2024) Right [...] on Eval Findings and POC Manual Therapy: (25 minutes) Passive ROM, Joint mobilization, Soft Tissue Mobilization, Myofascial Release, Muscle Energy Technique, Neural Mobilization, Myofascial Cupping, Dry Needling, IASTM, and Scar mobilization as needed. Manual distraction to right ankle in long sitting position. STM to right achilles and manual stretching with pt in prone position. Therapeutic Exercise: (30 minutes) Strength, Endurance, Flexibility, ROM, HEP, Neural Mobilization, Power, and Core Stability as needed. Performed all exercises without use of ASO to focus on stability of right ankle. Therapeutic Activity: Exercises to improve dynamic activities, functional tasks, functional mobility to return to prior activity level as needed. Neuromuscular re-education: Balance Training, Muscle Facilitation, Dynamic Stability, Core Stabilization, and Blood Flow Restriction Training (BFRT) as needed. Modalities: Heat, Ice, Electrical Stimulation, Ultrasound, Cervical Mechanical Traction, Lumbar Mechanical Traction, Iontophoresis, and Fluidotherapy as needed. Assessment: Pt has completed 4 PT sessions for right ankle fracture. Less hip hiking noted during gait this date. Pt able to achieve 16 degrees of right ankle DF following manual therapy this date. Relief of pain/stiffness reported with talocrural distraction. Will continue. Outcome Measure: Lower Extremity Functional Scale (LEFS): 61/80 Rehab Diagnosis: right ankle pain and weakness; difficulty walking Short Term Goal: To be met in 2 weeks Goal 1: Pt to be instructed in home exercise program. Goal 2: Pt to ambulate community distances in normal footwear. Care Home Goals: To be met in 10 weeks [...] sign below. Date: documented in this encounter [facility] 02-27-2024 History of Present illness Narrative Physical Therapy Treatment Visit Patient Name: Johnny Raya Today's Date: 02/27/2024 Encounter Diagnoses Name Primary? Closed fracture of right ankle, initial encounter Yes Right ankle pain, unspecified chronicity Visit number: 3 Timed Code Treatment Minutes: 54 minutes Total Treatment Time: 54 minutes Time In: 0800 Time Out: 0858 History: Jan 10 he was standing on [...] with swelling right LE. RTD 02/25/24. Precautions: [place] Subjective: Pt states he was able to transition to normal shoe. Now has compression stocking on right LE. Was told to wear ASO when on uneven surfaces. Doing exercises at home. Pain: 0/10 Objective: PT Evaluation (02/20/2024) Right [...] on Eval Findings and POC Manual Therapy: (12 minutes) Passive ROM, Joint mobilization, Soft Tissue Mobilization, Myofascial Release, Muscle Energy Technique, Neural Mobilization, Myofascial Cupping, Dry Needling, IASTM, and Scar mobilization as needed. Manual distraction to right ankle in long sitting position. Therapeutic Exercise: (42 minutes) Strength, Endurance, Flexibility, ROM, HEP, Neural Mobilization, Power, and Core Stability as needed. Progressed WB exercises this date with good sabra. Therapeutic Activity: Exercises to improve dynamic activities, functional tasks, functional mobility to return to prior activity level as needed. Neuromuscular re-education: Balance Training, Muscle Facilitation, Dynamic Stability, Core Stabilization, and Blood Flow Restriction Training (BFRT) as needed. Modalities: Heat, Ice, Electrical Stimulation, Ultrasound, Cervical Mechanical Traction, Lumbar Mechanical Traction, Iontophoresis, and Fluidotherapy as needed. Assessment: Pt has completed 3 PT sessions for right ankle fracture. Pt able to ascend 12 inch step with right LE with little to no compensation. Increase right hip hiking noted during swing phase of gait. Strength right ankle DF 4-/5. Will continue. Outcome Measure: Lower Extremity Functional Scale (LEFS): 61/80 Rehab Diagnosis: right ankle pain and weakness; difficulty walking Short Term Goal: To be met in 2 weeks Goal 1: Pt to be instructed in home exercise program. Goal 2: Pt to ambulate community distances in normal footwear. [address] Goals: To be met in 10 weeks [...] sign below. Date: documented in this encounter [facility] 02-25-2024 History of Present illness Narrative Physical Therapy Treatment Visit Patient Name: Johnny Raya Today's Date: 02/25/2024 Encounter Diagnoses Name Primary? Closed fracture of right ankle, initial encounter Yes Right ankle pain, unspecified chronicity Visit number: 2 Timed Code Treatment Minutes: 46 minutes Total Treatment Time: 46 minutes Time In: 0800 Time Out: 0850 History: Jan 10 he was standing on [...] with swelling right LE. RTD 02/25/24. Precautions: [place] Subjective: Right ankle felt a lot better after last session. States he has been stretching at home. Sleeping with foot elevated. Will see today. Pain: 0/10 Objective: PT Evaluation (02/20/2024) Right [...] on Eval Findings and POC Manual Therapy: (32 minutes) Passive ROM, Joint mobilization, Soft Tissue Mobilization, Myofascial Release, Muscle Energy Technique, Neural Mobilization, Myofascial Cupping, Dry Needling, IASTM, and Scar mobilization as needed. Manual stretching right ankle and STM to right achilles in prone. Manual distraction to right ankle to increase mobility. Therapeutic Exercise: (14 minutes) Strength, Endurance, Flexibility, ROM, HEP, Neural Mobilization, Power, and Core Stability as needed. Reviewed home program this date with good pt understanding. Added sitting BAPS this date with good sabra. Therapeutic Activity: Exercises to improve dynamic activities, functional tasks, functional mobility to return to prior activity level as needed. Neuromuscular re-education: Balance Training, Muscle Facilitation, Dynamic Stability, Core Stabilization, and Blood Flow Restriction Training (BFRT) as needed. Modalities: Heat, Ice, Electrical Stimulation, Ultrasound, Cervical Mechanical Traction, Lumbar Mechanical Traction, Iontophoresis, and Fluidotherapy as needed. Assessment: Pt has completed 2 PT sessions for right ankle fracture. Pt able to achieve 12 degrees of right ankle DF with knee flexed with overpressure following manual therapy. Anticipate transition to normal footwear following physician visit. Outcome Measure: Lower Extremity Functional Scale (LEFS): 61/80 Rehab Diagnosis: right ankle pain and weakness; difficulty walking Short Term Goal: To be met in 2 weeks Goal 1: Pt to be instructed in home exercise program. Goal 2: Pt to ambulate community distances in normal footwear. Care Home Goals: To be met in 10 weeks [...] sign below. Date: documented in this encounter [facility] 02-20-2024 History of Present illness Narrative Physical Therapy Evaluation Visit Patient [...] with swelling right LE. RTD 02/25/24. Precautions: [place] Subjective: Right ankle Pain: 0/10 Objective: PT [...] to ambulate community distances in normal footwear. [address] Goals: To be met in 10 weeks [...] sign below. Date: documented in this encounter [facility] 01-18-2021 Note EXAMINATION: XR CHES T 2 [...] by: FLORA TALBERT Date: 2021-01-18 13:02 [facility] Evaluation note No assessment inform ation available [facility] Work Phone: Evaluation note Diagnosis Right ankle pain, unspecified chronicity- Primary Closed fracture of right ankle, initial encounter [facility] Diagnosis Closed fracture of right ankle, initial encounter- Primary Right ankle pain, unspecified chronicity [facility] Diagnosis Closed fracture of right ankle, initial encounter- Primary Right ankle pain, unspecified chronicity [facility] Diagnosis Closed fracture of right ankle, initial encounter- Primary Right ankle pain, unspecified chronicity [facility] Diagnosis Closed fracture of right ankle, initial encounter- Primary Right ankle pain, unspecified chronicity [facility] Diagnosis Right ankle pain, unspecified chronicity- Primary Closed fracture of right ankle, initial encounter [facility] - Outpatient (Routine) - Authorized Specialty Diagnoses / Procedures Referred By Roddy t Referred To Contact Physical Therapy Diagnoses Pain in right ankle and joints of right foot Procedures [place] PHYSICAL THERAPY EVALUATION LOW COMPLEX 20 MINS Radha Stinson MD [address] [place] [address] Phone: tel: Fernanda Raya PT Referral ID Status Reason Start Date Expiration Date Visits Requested Visits Authorized [id number] Authorized Consult and Treat 02/20/2024 08/18/2024 30 30 [facility] Summary Purpose Family History No Family [...] DATE CREATED AUTHOR AUTHOR'S ORGANIZ ATION 09/21/2021 [facility] DATE CREATED AUTHOR AUTHOR'S ORGANIZ ATION 01/13/2024 [facility] DATE CREATED AUTHOR AUTHOR'S ORGANIZ ATION 03/23/2024 [facility] EPIC Care Teams (unrecognized [...] BE BASED ON THE PRIMARY CLINICAL RECORDS. [employer] provides no warranty or guarantee of the accuracy or completeness of information in this document.
== END 2024-03-24 09:18 | disposition home or self-care (01) ==
LOC: RAD 09:17
PROVIDERS: Visit Provider Podiatrist Foot & Ankle Surgery
DX: M25.571 Pain in right ankle and joints of right foot (principal); Z98.890 Other specified postprocedural states
CPT/HCPCS: 73610

== ENCOUNTER 2024-06-24 09:16 | Outpatient (OUT) | payer OTHER, SELFPAY ==
--- NOTE | 2024-06-24 09:18 | XR_ITS ---
[facility] [place] [id number] Patient Name: VIVIEN FITZPATRICK MRN: [id number] date: 2000 Sex: M Assigned Patient Location: [facility] Current Patient Location: [facility] Accession/Order Number: [id number] Exam Date: 06/24/2024 11:13 Report Date: 06/24/2024 11:16 At the request of: RADHA GENTILE DPM Procedure: XR ankle RT min 3V WEIGHTBEARING RIGHT ANKLE - 3 views COMPARISON: 03/24/2024 CLINICAL DATA: Right ankle pain. Follow-up after surgery. AP, lateral and oblique views were obtained. There is redemonstration of plate and screws along distal fibula. Syndesmosis bands are again noted. There is no developing fracture or dislocation. The talar dome is intact. There are no focal soft tissue abnormalities. XR/XR ankle RT min 3V IMPRESSION: STABLE APPEARANCE OF THE ANKLE. Impression dictated by: Jerri Maddox M.D.06/24/2024 11:16 AM Dictation Location: [employer] Electronically authenticated by: [id number] Date: 06/24/2024 11:16
--- OUTSIDE RECORDS SUMMARY | 2024-06-24 09:30 | XMS_ITS | CCD ---
Author Organization [facility] CliniSyut Care Team Providers Care Leak Hunter Name Role Phone GEOVANNI MALAVE Admitting Unavailable ROSIPKO, GEOVANNI Primary Care Unavailable ROSDENNIS CARDENASIN Consulting Unavailable DENNIS MALAVEIN Attending Unavailable DR FLORA TALBERT V Consulting Unavailable ROSIPKO, GEOVANNI Primary Care Unavailable CARITO LINCOLN Admitting Unavailable CARITO LINCOLN Attending Unavailable CARITO LINCOLN Consulting Unavailable EMMIE JULIO Primary Care Unavailable TG CRUZ Attending Unavailable NO PCP, NO PCP Primary Care Unavailable DAIANA MALLOY Attending Unavailable ADIANA MALLOY Referring Unavailable NO PCP, NO PCP Primary Care Unavailable DAIANA MALLOY Attending Unavailable DAIANA MALLOY Referring Unavailable NO PCP, NO PCP Primary Care Unavailable Unavailable Primary Care Provider Unavailabl e NONI RAYAA Attending Unavailable NANETTE, FERNANDA Attending Unavailable HIGHLANDER, RADHA D Referring Unavailable RAYA, FERNANDA Attending Unavailable HIGHLANDER, RADHA D Referring Unavailable RAYA, FERNANDA Attending Unavailable HIGHLANDER, RADHA D Referring Unavailable RONI BECKHAM Attending Unavailable HIGHLANDER, RADHA D Referring Unavailable BRRONI LANGLEY Attending Unavailable HIGHLANDER, PETER D Referring Unavailable RAYA, FERNANDA Attending Unavailable HIGHLANDER, PETER D Referring Unavailable RAYA, FERNANDA Attending Unavailable HIGHLANDER, PETER D Referring Unavailable RAYA, FERNANDA Attending Unavailable HIGHLANDER, PETER D Referring Unavailable RAYA, FERNANDA Attending Unavailable HIGHLANDER, PETER D Referring Unavailable RAYA, FERNANDA Attending Unavailable KRUPA, RADHA D Referring Unavailable MARIA EUGENIA BRANCH Attending Unavailable MARIA EUGENIA BRANCH Primary Care Unavailable Maria Eugenia Ferreira Primary Care Provider [phone] Medications Current Medications Medication Drug Class(es) Dates Sig (Normalized) Sig (Original) acetaminophen 21.7 mg/ml / dextromethorphan hydrobromide 0.667 mg/ml / phenylephrine hydrochloride 0.333 mg/ml oral solution (1 source) Uncompetitive T-eqqvrb-K-aspartat e Receptor Antagonist, Sigma-1 Agonist, alpha-1 Adrenergic Agonist Start: 08-18-2023 Phenylephrine-D m-Acetaminophen (Vicks Dayquil Cold-Flu Relief) 5-10-325 mg/15 mL liquid Active ML PO August 18, 2023 12:00am dextromethorphan hydrobromide 15 mg / guaiFENesin 400 mg / pseudoephedrine hydrochloride 60 mg oral tablet (1 source) alpha-Adrenergic Agonist, Uncompetitive N-xnlixv-P-aspartat e Receptor Antagonist, Sigma-1 Agonist Start: 08-18-2023 [...] Twice daily 10 August 18, 2023 12:00am Completed/Discontinued Medications Medication Drug Class(es) Dates Sig (Normalized) Sig (Original) albuterol 0.83 mg/ml inhalation solution (1 source) beta2-Adrenergic Agonist End: 05-07-2024 take 2.5 mg by inhalation every six hours as needed for wheezing albuterol (PROVENTIL,VENTOLI N) 2.5 mg /3 mL (0.083 %) nebulizer solution Inhale 3 mL (2.5 mg total) by nebulization every 6 (six) hours as needed for wheezing. 05/07/2024 Discontinued (Therapy completed) amoxicillin 500 mg oral capsule (1 source) Penicillin-class Antibacterial Start: 05-07-2024 End: 05-17-2024 take 1 capsule by mouth three times daily amoxicillin (AMOXIL) 500 mg capsule Indications: Acute non-recurrent frontal sinusitis Take 1 capsule (500 mg total) by mouth 3 (three) times a day for 10 days. 30 capsule 05/07/2024 05/17/2024 Problems Active Problems Problem Classification Problem Date Documented Da te Episodic/Chronic Administrative/social admission (4 sources) Encounter for pre-employment examination; Translations: [ENCOUNTER FOR PRE-EMPLOYMENT EXAM] Onset: 01-18-2021 Episodic Disorders of lipid metabolism (2 sources) Pure hyperglyceridemia; Translations: [Hypertriglyceridem ia] Onset: 05-07-2024 05-07-2024 Chronic Fracture of lower limb (12 sources) Displaced comminuted fracture of shaft of unspecified fibula, initial encounter for closed fracture; Translations: [Closed fracture of right ankle] Onset: 01-11-2024 02-20-2024 Episodic Other circulatory disease (2 sources) Elevated blood-pressure reading, without diagnosis of hypertension; Translations: [ELEVATED BP READING W/O DX HTN] Onset: 03-01-2021 Episodic Other circulatory disease (1 source) Elevated blood-pressure reading without diagnosis of hypertension; Translations: [Elevated blood-pressure reading, without diagnosis of hypertension] 05-07-2024 Episodic Other non-traumatic joint disorders (11 sources) Ankle pain; Translations: [Pain in right ankle and joints of right foot] 02-20-2024 Episodic Other nutritional; endocrine; and metabolic disorders (1 source) Body mass index (BMI) 36.0-36.9, adult; Translations: [Body mass index (BMI) 36.0-36.9, adult] Onset: 05-07-2024 Chronic Other nutritional; endocrine; and metabolic disorders (1 source) Body mass index 30+ - obesity; Translations: [Body mass index (BMI) 36.0-36.9, adult] 05-07-2024 Chronic Other screening for suspected conditions (not mental disorders or infectious disease) (1 source) Encounter for screening for lipoid disorders; Translations: [ENC SCREENING FOR LIPOID DISORDERS] Onset: 03-01-2021 Episodic Other upper respiratory infections (2 sources) Acute frontal sinusitis, unspecified; Translations: [Acute frontal sinusitis] Onset: 05-07-2024 05-07-2024 Episodic Residual codes; unclassified (1 source) Hypersomnia, unspecified; Translations: [Hypersomnia, unspecified] Onset: 05-07-2024 Chronic Residual codes; unclassified (2 sources) Hypersomnia; Translations: [Hypersomnia, unspecified] 06-01-2024 Chronic Unclassified (1 source) Ankle Injury Onset: 01-11-2024 Unclassified (1 source) New Patient Onset: 01-09-2025 Unclassified (1 source) Illness Onset: 05-07-2024 Past or Other Problems Problem Classification Problem Date Documented Da te Episodic/Chronic Mood disorders (2 sources) Mood disorders Onset: 05-07-2024 05-07-2024 Nonspecific chest pain (3 sources) Chest pain, [...] Donis DO on 01/11/2024 9:01 PM Normal [facility] XR FOOT RT MIN 3 VWSon [...] Jasmine MD on 01/11/2024 8:58 PM Normal [facility] XR TIBIA FIBULA RT MIN 2 [...] Bobo MD on 01/11/2024 9:23 PM Normal [facility] CBC AND AUTO DIFFon 07-16-19 ABSOLUTE BASOPHIL 0.1 X10E9/L Normal 0.0-0.2 [facility] Comment on above: Performed By: #### Nichole GOODE CMP, 34893-1 #### [facility] ([id number]) [address] [place] [address] 83189 ABSOLUTE NEUTROPHIL 4.6 X10E9/L Normal 1.5-6.6 [facility] Comment on above: Performed By: #### Nichole GOODE CMP, 07643-0 #### [facility] ([id number]) [address] [place] [address] 12076 Basophils/100 WBC (Bld) 0.8 % Normal [facility] Comment on above: Performed By: #### Nichole GOODE CMP, 88531-2 #### [facility] ([id number]) [address] [place] [address] 51183 Eosinophils (Bld) [#/Vol] 0.1 10*3/uL Normal 0.0-0.4 [facility] Comment on above: Performed By: #### Nichole GOODE CMP, 63651-7 #### [facility] ([id number]) [address] [place] [address] 63366 Eosinophils/100 WBC (Bld) 1.1 % Normal [facility] Comment on above: Performed By: #### Nichole GOODE CMP, 33104-7 #### [facility] ([id number]) [address] [place] [address] 72035 Erythrocyte distribution width (RBC) [Ratio] 12.9 % Normal 11.5-15.0 [facility] Comment on above: Performed By: #### Nichole GOODE, CMP, 96211-7 #### [facility] ([id number]) [address] [place] [address] 16268 Hematocrit (Bld) [Volume fraction] 43.6 % Normal 39-49 [facility] Comment on above: Performed By: #### Nichole GOODE, CMP, 83025-4 #### [facility] ([id number]) [address] [place] [address] 84489 Hemoglobin (Bld) [Mass/Vol] 15.0 g/dL Normal 13.0-17.0 [facility] Comment on above: Performed By: #### Nichole GOODE, CMP, 11899-5 #### [facility] ([id number]) [address] [place] [address] 31402 Lymphocytes (Bld) [#/Vol] 2.9 10*3/uL Normal 1.0-3.5 [facility] Comment on above: Performed By: #### Nichole GOODE, CMP, 51946-0 #### [facility] ([id number]) [address] [place] [address] 00992 Lymphocytes/100 WBC (Bld) 35.1 % Normal [facility] Comment on above: Performed By: #### Nichole GOODE, CMP, 13873-8 #### [facility] ([id number]) [address] [place] [address] 73192 MCH (RBC) [Entitic mass] 28.7 pg Normal 27-34 [facility] Comment on above: Performed By: #### Nichole GOODE, CMP, 22617-3 #### [facility] ([id number]) [address] [place] [address] 32890 MCHC (RBC) [Mass/Vol] 34.5 g/dL Normal 32-36 [facility] Comment on above: Performed By: #### Nichole GOODE CMP, 90596-0 #### [facility] ([id number]) [address] [place] [address] 57277 MCV (RBC) [Entitic vol] 83 fL Normal 80-100 [facility] Comment on above: Performed By: #### Nichole GOODE CMP, 99607-2 #### [facility] ([id number]) [address] [place] [address] 32350 Monocytes (Bld) [#/Vol] 0.6 10*3/uL Normal 0-0.9 [facility] Comment on above: Performed By: #### Nichole GOODE CMP, 13394-8 #### [facility] ([id number]) [address] [place] [address] 66241 Monocytes/100 WBC (Bld) 6.8 % Normal [facility] Comment on above: Performed By: #### Nichole GOODE CMP, 75769-0 #### [facility] ([id number]) [address] [place] [address] 74981 Neutrophils/100 WBC (Bld) 56.2 % Normal [facility] Comment on above: Performed By: #### Nichole GOODE CMP, 53017-3 #### [facility] ([id number]) [address] [place] [address] 31439 Platelet mean volume (Bld) [Entitic vol] 8.6 fL Normal 7-12 [facility] Comment on above: Performed By: #### Nichole GOODE, CMP, 16972-2 #### [facility] ([id number]) [address] [place] [address] 60592 Platelets (Bld) [#/Vol] 220 10*3/uL Normal 150-450 [facility] Comment on above: Performed By: #### C BCA, CMP, 98875-3 #### [facility] ([id number]) [address] [place] [address] 76031 RBC COUNT 5.24 X10E12/L Normal 4.10-5.70 [facility] Comment on above: Performed By: #### C BCA, CMP, 40307-2 #### [facility] ([id number]) [address] [place] [address] 44650 WBC (Bld) [#/Vol] 8.2 10*3/uL Normal 4.0-11.0 [facility] Comment on above: Performed By: #### C BCA, CMP, 15418-8 #### [facility] ([id number]) [address] [place] [address] 06332 COMPREHENSIVE METABOLIC PANE Steven 07-16-2023 Albumin [Mass/Vol] 5.3 g/dL Normal 3.2-5.3 [facility] Comment on above: Performed By: #### C BCA, CMP, 55501-9 #### [facility] ([id number]) [address] [place] [address] 40591 ALP [Catalytic activity/Vol] 80 U/L Normal 39-130 [facility] Comment on above: Performed By: #### C BCA, CMP, 98802-7 #### [facility] ([id number]) [address] [place] [address] 70578 ALT [Catalytic activity/Vol] 25 U/L Normal 0-40 [facility] Comment on above: Performed By: #### C BCA, CMP, 06494-7 #### [facility] ([id number]) [address] [place] [address] 37645 Anion gap [Moles/Vol] 9 mmol/L Normal 5-15 [facility] Comment on above: Performed By: #### C BCA, CMP, 43533-7 #### [facility] ([id number]) [address] [place] [address] 92591 AST [Catalytic activity/Vol] 25 U/L Normal 0-41 [facility] Comment on above: Performed By: #### C BCA, CMP, 34724-9 #### [facility] ([id number]) [address] [place] [address] 92526 Bilirubin [Mass/Vol] 0.7 mg/dL Normal 0.3-1.2 [facility] Comment on above: Performed By: #### C BCA, CMP, 02227-7 #### [facility] ([id number]) [address] [place] [address] 24726 Calcium [Mass/Vol] 9.1 mg/dL Normal 8.5-10.5 [facility] Comment on above: Performed By: #### C BCA, CMP, 74958-6 #### [facility] ([id number]) [address] [place] [address] 09215 Chloride [Moles/Vol] 98 mmol/L Normal 98-109 [facility] Comment on above: Performed By: #### C BCA, CMP, 80232-2 #### [facility] ([id number]) [address] [place] [address] 53378 CO2 [Moles/Vol] 26 mmol/L Normal 22-32 [facility] Comment on above: Performed By: #### C BCA, CMP, 04714-8 #### [facility] ([id number]) [address] [place] [address] 81144 Creatinine [Mass/Vol] 1.29 mg/dL High 0.70-1.20 [facility] Comment on above: Result Comment: METH OD TRACEABLE TO IDMS STANDARD Performed By: #### C BCA, CMP, 85399-0 #### [facility] ([id number]) [address] [place] [address] 17601 GFR/1.73 sq M.predicted among non-blacks MDRD (S/P/Bld) [Vol rate/Area] 80 mL/min/{1.73_m2} Normal >59 [facility] Comment on above: Result Comment: Reported eGFR is based on the CKD-EPI 2020 equation that does not use a race coefficient. Performed By: #### C VARINDER GOODE, 03693-8 #### [facility] ([id number]) [address] [place] [address] 45131 Glucose [Mass/Vol] 97 mg/dL Normal 65-99 [facility] Comment on above: Performed By: #### Nichole GOODE CMP, 18382-1 #### [facility] ([id number]) [address] [place] [address] 66154 Potassium [Moles/Vol] 3.6 mmol/L Normal 3.5-5.0 [facility] Comment on above: Performed By: #### Nichole GOODE CMP, 11551-2 #### [facility] ([id number]) [address] [place] [address] 96810 Protein [Mass/Vol] 8.2 g/dL High 6.0-8.0 [facility] Comment on above: Performed By: #### Nichole GOODE CMP, 86845-5 #### [facility] ([id number]) [address] [place] [address] 18122 Sodium [Moles/Vol] 133 mmol/L Low 134-146 [facility] Comment on above: Performed By: #### Nichole GOODE CMP, 51867-3 #### [facility] ([id number]) [address] [place] [address] 92543 Urea nitrogen [Mass/Vol] 22 mg/dL Normal 5-23 [facility] Comment on above: Performed By: #### Nichole GOODE CMP, 57147-7 #### [facility] ([id number]) [address] [place] [address] 17355 TROPONIN Ion 07-16-2023 Troponin I.cardiac [Mass/Vol] 0.01 ng/mL Normal 0.00-0.04 [facility] Comment on above: Performed By: #### C VARINDER GOODE, 11105-7 #### [facility] ([id number]) [address] [place] [address], [place] [address] Outside [employer] 09-12-2021 Outside Records Response from [facility] stating patient needs to sign record release form in order to send records. [Electronically Signed on: 09/12/2021 08:16 EDT] Jie Browne [Verified on: 09/12/2021 08:16 EDT] Jie Browne Called pt , he will be stopping in next week to sign release. [Electronically Signed on: 09/20/2021 13:53 EDT] Jie Browne [facility] CBC AUTO DIFFon 01-18-2021 BASO # 0.0 103/ul Normal 0.0-0.[address] [facility] Comment on above: Performed By: #### C BC #### [facility] [address] [place] [address] Dr. Jayne Pedraza Basophils/100 WBC (Bld) 0.4 % Normal 0.2-2.[address] [facility] Comment on above: Performed By: #### C BC #### [facility] [address] [place] [address] Dr. Jayne Pedraza EO # 0.1 103/ul Normal 0.0-0.7 [facility] Comment on above: Performed By: #### C BC #### [facility] [address] [place] [address] Dr. Jayne Pedraza Eosinophils/100 WBC (Bld) 0.9 % Normal 0.9-7.[address] [facility] Comment on above: Performed By: #### C BC #### [facility] [address] [place] [address] Dr. Jayne Pedraza Erythrocyte distribution width (RBC) [Ratio] 12.0 % Normal 11.0-15.[address] [facility] Comment on above: Performed By: #### C BC #### [facility] [address] [place] [address] Dr. Jayne Pedraza Hematocrit (Bld) [Volume fraction] 45.7 % Normal 42.0-54.[address] [facility] Comment on above: Performed By: #### C BC #### [facility] [address] [place] [address] Dr. Jayne Pedraza Hemoglobin (Bld) [Mass/Vol] 14.8 g/dL Normal 14.0-18.[address] [facility] Comment on above: Performed By: #### C BC #### [facility] [address] [place] [address] Dr. Jayne Pedraza IG # 0.07 10e3/ul Critically high 0.00-0.03 [facility] Comment on above: Performed By: #### C BC #### [facility] [address] [place] [address] Dr. Jayne Pedraza IG % 0.7 % Critically high 0.0-0.5 [facility] Comment on above: Performed By: #### C BC #### [facility] [address] [place] [address] Dr. Jayne Pedraza LYMPH # 1.5 103/ul Normal 1.2-3.8 [facility] Comment on above: Performed By: #### C BC #### [facility] [address] [place] [address] Dr. Jayne Pedraza Lymphocytes/100 WBC (Bld) 16.0 % Critically low 20.5-60.[address] [facility] Comment on above: Performed By: #### C BC #### [facility] [address] [place] [address] Dr. Jayne Pedraza MANUAL DIFF REQ NO Normal [facility] Comment on above: Performed By: #### C BC #### [facility] [address] [place] [address] Dr. Jayne Pedraza MCH (RBC) [Entitic mass] 28.0 pg Normal 25.9-34.[address] [facility] Comment on above: Performed By: #### C BC #### [facility] [address] [place] [address] Dr. Jayne Pedraza MCHC (RBC) [Mass/Vol] 32.4 g/dL Normal 29.9-35.[address] [facility] Comment on above: Performed By: #### C BC #### [facility] [address] [place] [address] Dr. Jayne Pedraza MCV (RBC) [Entitic vol] 86.6 fL Normal 80.0-94.[address] [facility] Comment on above: Performed By: #### C BC #### [facility] [address] [place] [address] Dr. Jayne Pedraza MONO # 0.7 103/ul Normal 0.3-0.[address] [facility] Comment on above: Performed By: #### C BC #### [facility] [address] [place] [address] Dr. Jayne Pedraza Monocytes/100 WBC (Bld) 7.6 % Normal 1.7-12.0 [facility] Comment on above: Performed By: #### C BC #### [facility] [address] [place] [address] Dr. Jayne Pedraza NEUT # 7.2 103/ul Critically high 1.4-6.5 [facility] Comment on above: Performed By: #### C BC #### [facility] [address] [place] [address] Dr. Jayne Pedraza Neutrophils/100 WBC (Bld) 74.4 % Normal 43.0-75.[address] [facility] Comment on above: Performed By: #### C BC #### [facility] [address] [place] [address] Dr. Jayne Pedraza Platelet mean volume (Bld) [Entitic vol] 10.0 fL Normal 9.5-13.[address] [facility] Comment on above: Performed By: #### C BC #### [facility] [address] [address] [address] Jayne Pedraza PLT 241 103/ul Normal 150-[address] [facility] Comment on above: Performed By: #### C BC #### [facility] [address] [place] [address] Dr. Jayne Pedraza RBC 5.28 106/ul Normal 4.70-6.[address] [facility] Comment on above: Performed By: #### C BC #### [facility] [address] [place] [address] Dr. Jayne Pedraza WBC 9.6 103/ul Normal 4.0-11.[address] [facility] Comment on above: Performed By: #### C BC #### [facility] [address] [place] [address] Dr. Jayne Pedraza DIRECT LDLon 01-18-2021 Cholesterol in LDL [Mass/Vol] 80 mg/dL Normal [facility] Comment on above: Performed By: #### D LDL #### [facility] [address] [place] [address] Dr. Jayne Pedraza DLDL NORMAL SEE BELOW Normal [facility] Comment on above: Result Comment: <100 mg/dl OPTIMAL 100 - 129 mg/dl NEAR OR ABOVE OPTIMAL 130 - 159 mg/dl BORDERLINE HIGH 160 - 189 mg/dl HIGH >190 mg/dl VERY HIGH Performed By: #### D LDL #### [facility] [address] [place] [address] Dr. Jayne Pedraza LIPID PROFILEon 01-18-2021 CHOL-HDL RATIO NORM SEE BELOW Normal [facility] Comment on above: Result Comment: 3.3 - 4.4 LOW RISK 4.4 - 7.1 AVERAGE RISK 7.1 - 11.0 MODERATE RISK >11.0 HIGH RISK Performed By: #### T SH, LIPID, CMP #### [facility] [address] [address] [address] Jayne Pedraza Cholesterol [Mass/Vol] 133 mg/dL Normal <=[address] [facility] Comment on above: Performed By: #### T SH, LIPID, CMP #### [facility] [address] [address] [address] Jayne Pedraza Cholesterol in HDL [Mass/Vol] 31 mg/dL Normal [facility] Comment on above: Performed By: #### T SH, LIPID, CMP #### [facility] [address] [address] [address] Jayne Pedraza Cholesterol in LDL [Mass/Vol] 70.4 mg/dL Normal [facility] Comment on above: Performed By: #### T SH, LIPID, CMP #### [facility] [address] [place] [address] Dr. Jayne Pedraza Cholesterol.total/C holesterol in HDL [Mass ratio] 4.3 {ratio} Normal [facility] Comment on above: Performed By: #### T SH, LIPID, CMP #### [facility] [address] [address] [address] Jayne Pedraza HDL NORMAL > or = 60 mg/dl - LOW CARDIOVASCULAR RISK <40 mg/dl - HIGH CARDIOVASCULAR RISK Normal [facility] Comment on above: Performed By: #### T SH, LIPID, CMP #### [facility] [address] [address] [address] Jayne Pedraza LDL CALC NORMAL SEE BELOW Normal [facility] Comment on above: Result Comment: <100 mg/dl OPTIMAL 100 - 129 mg/dl NEAR OR ABOVE OPTIMAL 130 - 159 mg/dl BORDERLINE HIGH 160 - 189 mg/dl HIGH >190 mg/dl VERY HIGH Performed By: #### T SH, LIPID, CMP #### [facility] [address] [address] [address] Jayne Pedraza Triglyceride [Mass/Vol] 158 mg/dL Critically high <=[address] [facility] Comment on above: Performed By: #### T SH, LIPID, CMP #### [facility] [address] [address] [address] Jayne Pedraza VLDL CALC 31.6 mg/dL Normal [facility] Comment on above: Performed By: #### T SH, LIPID, CMP #### [facility] [address] [address] [address] Jayne Pedraza PROF 14(COMP METB)on 021 Albumin [Mass/Vol] 4.6 g/dL Normal 3.5-5.0 [facility] Comment on above: Performed By: #### T SH, LIPID, CMP #### [facility] [address] [address] [address] Jayne Pedraza Albumin/Globulin [Mass ratio] 1.2 {ratio} Normal [facility] Comment on above: Performed By: #### T SH, LIPID, CMP #### [facility] [address] [place] [address] Dr. Jayne Pedraza ALP [Catalytic activity/Vol] 88 U/L Normal 38-[address] [facility] Comment on above: Performed By: #### T SH, LIPID, CMP #### [facility] [address] [place] [address] Dr. Jayne Pedraza ALT [Catalytic activity/Vol] 22 U/L Normal 21-[address] [facility] Comment on above: Performed By: #### T SH, LIPID, CMP #### [facility] [address] [address] [address] Jayne Pedraza Anion gap [Moles/Vol] 13.5 mmol/L Normal [facility] Comment on above: Performed By: #### T SH, LIPID, CMP #### [facility] [address] [address] [address] Jayne Pedraza AST [Catalytic activity/Vol] 13 U/L Critically low 17-[address] [facility] Comment on above: Performed By: #### T SH, LIPID, CMP #### [facility] [address] [address] [address] Jayne Pedraza Bilirubin [Mass/Vol] 0.7 mg/dL Normal 0.2-1.[address] [facility] Comment on above: Performed By: #### T SH, LIPID, CMP #### [facility] [address] [address] [address] Jayne Pedraza Calcium [Mass/Vol] 10.1 mg/dL Normal 8.4-10.2 [facility] Comment on above: Performed By: #### T SH, LIPID, CMP #### [facility] [address] [address] [address] Jayne Pedraza Chloride [Moles/Vol] 100 mmol/L Normal 98-107 [facility] Comment on above: Performed By: #### T SH, LIPID, CMP #### [facility] [address] [address] [address] Jayne Pedraza CO2 [Moles/Vol] 27.8 mmol/L Normal 22.0-30.0 [facility] Comment on above: Performed By: #### T SH, LIPID, CMP #### [facility] [address] [place] [address] Dr. Jayne Pedraza Creatinine [Mass/Vol] 1.09 mg/dL Normal 0.66-1.[address] [facility] Comment on above: Performed By: #### T SH, LIPID, CMP #### [facility] [address] [place] [address] Dr. Jayne Pedraza EGFR-AF ERITREAN >60 Normal >=60 [facility] Comment on above: Performed By: #### T SH, LIPID, CMP #### [facility] [address] [place] [address] Dr. Jayne Pedraza EGFR-NON AF ERITREAN >60 Normal >=60 [facility] Comment on above: Performed By: #### T SH, LIPID, CMP #### [facility] [address] [place] [address] Dr. Jayne Pedraza Globulin (S) [Mass/Vol] 3.7 g/dL Normal [facility] Comment on above: Performed By: #### T SH, LIPID, CMP #### [facility] [address] [place] [address] Dr. Jayne Pedraza Glucose [Mass/Vol] 93 mg/dL Normal 74-106 [facility] Comment on above: Performed By: #### T SH, LIPID, CMP #### [facility] [address] [address] [address] Jayne Pedraza Potassium [Moles/Vol] 4.3 mmol/L Normal 3.4-5.[address] [facility] Comment on above: Performed By: #### T SH, LIPID, CMP #### [facility] [address] [place] [address] Dr. Jayne Pedraza Protein [Mass/Vol] 8.3 g/dL Critically high 6.1-8.2 [facility] Comment on above: Performed By: #### T SH, LIPID, CMP #### [facility] [address] [place] [address] Dr. Jayne Pedraza Sodium [Moles/Vol] 137 mmol/L Normal 137-145 [facility] Comment on above: Performed By: #### T SH, LIPID, CMP #### [facility] [address] [place] [address] Dr. Jayne Pedraza Urea nitrogen [Mass/Vol] 19.0 mg/dL Normal 9.0-20.[address] [facility] Comment on above: Performed By: #### T SH, LIPID, CMP #### [facility] [address] [place] [address] Dr. Jayne Pedraza Urea nitrogen/Creatinine [Mass ratio] 17.4 mg/mg Normal [facility] Comment on above: Performed By: #### T SH, LIPID, CMP #### [facility] [address] [place] [address] Dr. Jayne Pedraza TSHon 01-18-2021 TSH 1.230 uIU/mL Normal 0.470-4.[address] [facility] Comment on above: Performed By: #### T SH, LIPID, CMP #### [facility] [address] [place] [address] Dr. Jayne Pedraza TSH RANGE SEE BELOW Normal [facility] Comment on above: Result Comment: <0.3 4 UIU/ml HYPERTHYROID 0.34-5.60 UIU/ml EUTHYROID >5.60 UIU/ml HYPOTHYROID Performed By: #### T SH, LIPID, CMP #### [facility] [address] [place] [address] Dr. Jayne Pedraza Vital Signs Date Time Vital Sign Value Performing Clinician Facility 05-07-2024 11:36-0500 Diastolic blood pressure 78 mm[Hg] Maria Eugenia Branch QUALITY ASSURANCE MANAGER-PUMP ROOM OPERATOR Work Phone: [facility] 05-07-2024 11:36-0500 Systolic blood pressure 128 mm[Hg] Maria Eugenia Branch QUALITY ASSURANCE MANAGER-PUMP ROOM OPERATOR Work Phone: [facility] 05-07-2024 11:03-0500 Body height 182.9 cm Maria Eugenia Branch QUALITY ASSURANCE MANAGER-PUMP ROOM OPERATOR Work Phone: [facility] 05-07-2024 11:03-0500 Body mass index (BMI) [Ratio] 36.48 kg/m2 Maria Eugenia Branch QUALITY ASSURANCE MANAGER-PUMP ROOM OPERATOR Work Phone: [facility] 05-07-2024 11:03-0500 Body temperature 98.29 [degF] Maria Eugeniajennifer Branch QUALITY ASSURANCE MANAGER-PUMP ROOM OPERATOR Work Phone: [facility] 05-07-2024 11:03-0500 Body weight 122.02 kg Maria Eugenia Branch QUALITY ASSURANCE MANAGER-PUMP ROOM OPERATOR Work Phone: [facility] 05-07-2024 11:03-0500 Heart rate 86 /min Maria Eugenia Branch QUALITY ASSURANCE MANAGER-PUMP ROOM OPERATOR Work Phone: [facility] 05-07-2024 11:03-0500 SaO2% (BldA) [Mass fraction] 96 % Maria Eugeniajennifer Branch QUALITY ASSURANCE MANAGER-PUMP ROOM OPERATOR Work Phone: [facility] 08-18-2023 14:21-0400 Body height 182.88 cm [facility] 08-18-2023 14:21-0400 Body mass index (BMI) [Ratio] 36.1 kg/m2 08-18-2023 14:21-0400 Body temperature 99.6 [degF] [facility] 08-18-2023 14:21-0400 Body weight 120.71 kg [facility] 08-18-2023 14:-0400 Diastolic blood pressure 88 mm[Hg] 08-18-2023 14:-0400 Heart rate 90 /min [facility] 08-18-2023 14:0400 Respiratory rate 16 /min [facility] 08-18-2023 14:-0400 SaO2% (BldA) [Mass fraction] 97 % 08-18-2023 14:-0400 Systolic blood pressure 158 mm[Hg] Encounters Encounter Date Encounter Type Care Provider Facility Start: 05-27-2024 End: 05-27-2024 Telephone encounter [facility] QUALITY ASSURANCE MANAGER-PUMP ROOM OPERATOR Work Phone: [facility] Comment on above: Sleep Lab (PSG) Start: 05-07-2024 End: 05-07-2024 Office outpatient new 30 minutes [facility] QUALITY ASSURANCE MANAGER-PUMP ROOM OPERATOR Work Phone: [facility]Vazquez Wan MD Comment on above: Elevated BP without diagnosis of hypertension (Primary Dx); Acute non-recurrent frontal sinusitis; Hypertriglyceridemia; BMI 36.0-36.9,adult; Hypersomnolence Start: 05-07-2024 End: 05-07-2024 ambulatory [facility] Start: 04-07-2024 End: 04-07-2024 Bamboo flowsheet Fernanda Raya PT [facility] Start: 04-07-2024 End: 04-07-2024 Bamboo flowsheet Fernanda Raya PT [facility] Start: 04-07-2024 End: 04-07-2024 ambulatory Fernanda Raya PT [facility] Comment on above: Closed fracture of r ight ankle, initial encounter (Primary Dx); Right ankle pain, unspecified chronicity Start: 03-30-2024 End: 03-30-2024 Bamboo flowsheet Fernanda Raya PT [facility] Start: 03-30-2024 End: 03-30-2024 Bamboo flowsheet Fernanda Raya PT [facility] Start: 03-30-2024 End: 03-30-2024 ambulatory Fernanda Raya PT [facility] Comment on above: Closed fracture of r ight ankle, initial encounter (Primary Dx); Right ankle pain, unspecified chronicity Start: 03-20-2024 End: 03-20-2024 Bamboo flowsheet Fernanda [...] Start: 03-10-2024 End: 03-10-2024 Bamboo flowsheet Roni Brink FIOS LINE INSTALLER [facility] Start: 03-10-2024 End: 03-10-2024 Bamboo flowsheet Roni Brink [employer] INSTALLER [facility] Start: 03-10-2024 End: 03-10-2024 ambulatory Roni Brink [employer] INSTALL[employer] [facility] Comment on above: Closed fracture of r ight ankle, initial encounter (Primary Dx); Right ankle pain, unspecified chronicity Start: 03-05-2024 End: 03-05-2024 Bamboo flowsheet Roni Beckham [employer]OS LINE INSTALLER [facility] Start: 03-05-2024 End: 03-05-2024 Bamboo flowsheet Roni Beckham [employer]OS LINE INSTALLER [facility] Start: 03-05-2024 End: 03-05-2024 ambulatory Roni Beckham [employer]OS LINE INSTALLER [facility] Comment on above: Closed [...] PT Start: 02-25-2024 End: 02-25-2024 Bamboo flowsheet Fernanda [...] 01-12-2024 Emergency department patient visit DAIANA MALLOY [facility] Start: 08-18-2023 End: 08-18-2023 ambulatory [facility] Work Phone: Start: 08-18-2023 End: 08-18-2023 Patient encounter procedure [facility] [place] Work Phone: Start: 07-16-2023 End: 07-17-2023 Emergency department patient visit EMMIE JUILO [facility] Start: 01-18-2021 End: 01-19-2021 ambulatory GEOVANNI ANANDA Facility: Procedures Date Procedure Procedure Detail Performing Clinician Start: 05-07-2024 Adult depression screening assessment Maria Eugenai Branch QUALITY ASSURANCE MANAGER-PUMP ROOM OPERATOR Work Phone: Plan of Treatment Date Care Activity Detail Author Start: 05-07-2025 Adult BMI Screening Adult BMI Screen ing [facility] Start: 05-07-2025 Depression Screening Depression Scre ening [facility] Start: 01-10-2025 Tobacco Screening Tobacco Screening [facility] Start: 04-16-2024 End: 04-16-2024 ambulatory 04/16/2024 8:00 AM EST Treatment [facility] [address] [facility] [address] [place] [address] Fernanda Raya PT [facility] Start: 04-13-2024 End: 04-13-2024 ambulatory [facility] Start: 04-10-2024 End: 04-10-2024 ambulatory 04/10/2024 7:00 AM EST Treatment [facility] [address] [place] [address] [place] [address] Fernanda Raya, PT [facility] Start: 04-07-2024 End: 04-07-2024 ambulatory 04/07/2024 8:00 AM EST Treatment [facility] [address] [place] [address] [place] [address] Fernanda Raya, PT [facility] Start: 04-03-2024 End: 04-03-2024 ambulatory 04/03/2024 8:00 AM EST Treatment [facility] [address] [place] [address] [place] [address] Fernanda Raya, PT [facility] Start: 04-02-2024 End: 04-02-2024 ambulatory 04/02/2024 8:00 AM EST Treatment [facility] [address] [place] [address] [place] [address] Fernanda Raya, PT [facility] Start: 03-31-2024 End: 03-31-2024 ambulatory 03/31/2024 8:00 AM EST Treatment [facility] [address] [place] [address] [place] [address] Fernanda Raya, PT [facility] Start: 03-30-2024 End: 03-30-2024 ambulatory 03/30/2024 9:00 AM EST Treatment [facility] [address] [place] [address] [place] [address] Fernanda Raya, PT [facility] Start: 03-24-2024 End: 03-24-2024 ambulatory 03/24/2024 8:00 AM EST Treatment [facility] [address] [place] [address] [place] [address] Fernanda Raya, PT [facility] Start: 03-20-2024 End: 03-20-2024 ambulatory 03/20/2024 8:00 AM EST Treatment [facility] [address] [place] [address] [place] [address] Fernanda Raya, PT [facility] Start: 03-19-2024 End: 03-19-2024 ambulatory 03/19/2024 8:00 AM EST Treatment [facility] [address] [place] [address] [place] [address] Fernanda Raya, PT [facility] Start: 03-17-2024 End: 03-17-2024 ambulatory 03/17/2024 8:00 AM EST Treatment [facility] [address] [place] [address] [place] [address] Fernanda Raya, PT [facility] Start: 03-12-2024 End: 03-12-2024 ambulatory 03/12/2024 8:00 AM EST Treatment [facility] [address] [place] [address] Fernanda Raya, PT [facility] Start: 03-10-2024 End: 03-10-2024 ambulatory 03/10/2024 8:00 AM EST Treatment [facility] [address] [facility] [place] [address] Roni Beckham, FIOS LINE INSTALLER [facility] Start: 03-05-2024 End: 03-05-2024 ambulatory 03/05/2024 8:00 AM EST Treatment [facility] [address] [facility] [place] [address] Roni Beckham, FIOS LINE INSTALLER [facility] Start: 03-03-2024 End: 03-03-2024 ambulatory 03/03/2024 8:00 AM EST Treatment [facility] [address] [facility] [place] [address] Fernanda Raya, PT [facility] Start: 02-27-2024 End: 02-27-2024 ambulatory 02/27/2024 8:00 AM EDT Treatment [facility] [address] [facility] [place] [address] Fernanda Raya, PT [facility] Start: 02-25-2024 End: 02-25-2024 ambulatory [facility] Comment on above: Arrived Start: 12-29-2023 Influenza vaccination Influenza Vacc ine [facility] Start: 12-11-2022 DTaP,Tdap and Td Vaccines (6 - Td or Tdap) DTaP,Tdap and Td Vaccines (6 - Td or Tdap) [facility] Start: 11-26-2017 Adult BMI Follow Up Plan Adult BMI Follow Up Plan [facility] Start: 1999 Tobacco Counseling Tobacco Counselin g [facility] End: 05-07-2025 [facility] Routine Hypersomnolence 1 Occurrences starting 05/07/2024 until 05/07/2025 [facility] Work Phone: Comment on above: 1 Occurrences starti ng 05/07/2024 until 05/07/2025 Immunizations Immunization Date Immunization Notes Care Provider Lukas santana 03-14-2021 influenza virus vaccine, unspecified formulation Maria Eugenia PECK Work Phone: [facility] Payers Date Payer Category Payer Commercial Managed C are - [employer] [id number] 2024 Unknown [id number] 2021 Managed Care O (unspecified) [employer] [id number] 2021 Medicaid [id number] 2021 Private Health Insurance [id number] 1999 Unknown [id number] 2.16.840.1.060859.3.579. 2.1286 1999 Unknown [id number] 2.16.840.1.307992.3.579. 2.1285 1999 Unknown [id number] 2.16.840.1.606671.3.579. 2.1285 1999 Unknown [id number] 2.16840.1.056924.3.579. 2.1285 1999 Unknown [id number] 2.16.840.1.706161.3.579. 2.1285 1999 Unknown [id number] 2.16.840.1.141543.3.579. 2.1258 1999 Unknown [id number] 2.16.840.1.634013.3.579. 2.1258 1999 Unknown [id number] 2.16.840.1.115706.3.579. 2.1258 1999 Unknown [id number] 2.16.840.1.674265.3.579. 2.1258 1999 Unknown [id number] 2.16.840.1.640527.3.579. 2.1258 1999 Unknown [id number] 2.16.840.1.626124.3.579. 2.1258 1999 Unknown [id number] 2.16.840.1.511425.3.579. 2.1258 1999 Unknown [id number] 2.16.840.1.892544.3.579. 2.1259 1999 Unknown [id number] 2.16.840.1.086601.3.579. 2.1259 1999 Unknown [id number] 2.16.840.1.998676.3.579. 2.1259 1999 Unknown [id number] 2.16.840.1.503526.3.579. 2.1259 1999 Unknown [id number] 2.16.840.1.265138.3.579. 2.1286 1959 Self-pay 1959 Self-pay [id number] Unknown [id number] 2.16.840.1.676442.3.579. 2.593 Unknown [id number] 2.16.840.1.141849.3.579. 2.593 Social History Date Type Detail Facility Start: 07-16-2023 End: 08-18-2023 Tobacco smoking status PAIS Never smoked tobacco (finding) Start: 1999 Sex Assigned At Male F [facility] Tobacco smoking stat [facility] Tobacco smoking consumption unknown [facility] Start: 1999 Sex assigned at Not on file N [facility] Start: 07-11-2022 Gender identity Identifies as male gender (finding) [facility] Start: 02-16-2018 End: 06-09-2020 Sexual orientation Not on file [facility] Start: 07-16-2023 Tobacco use and exposure User of smokeless tobacco [facility] History of tobacco use Chews Tobacco [facility] Start: 05-07-2024 End: 06-01-2024 Alcoholic beverage intake Current drinker of alcohol (finding) [facility] Start: 02-16-2018 End: 06-09-2020 History of Social function [facility] Frequency of Alcohol Consumption Never [facility] Start: 05-07-2024 Alcohol Comment occasional [facility] Start: 12-02-2014 Sex Male (finding) [facility] Clinical Notes 01-18-2021 to 05-27-2024 Telephone Encounter - Radha RuizNeil - 05/27/2024 12:24 PM ESTTelephone Encounter - Radha RuizNeil - 05/27/2024 12:24 PM ESTTelephone Encounter - Radha RuizNeil - 05/27/2024 12:24 PM EST Note Date & Type Note Facility 05-27-2024 Miscellaneous Notes 05/07 received PSG order 05/27 request notes be completed and signed Dario, in order to schedule the sleep study, we would need the office notes from 05/07/24 completed and signed (including sleep symptoms). Thank you! documented in this encounter [facility] 05-27-2024 Telephone encounter Note 05/07 received PSG order 05/27 request notes be completed and signed [facility] 05-27-2024 Telephone encounter Note Dario, in order to schedule the sleep study, we would need the office notes from 05/07/24 completed and signed (including sleep symptoms). Thank you! [facility] 05-07-2024 History of Present illness Narrative Subjective Patient ID: Johnny Raya is a 23 y.o. male. Chief Complaint Chief Complaint Patient presents with New Patient Est care, did physical for work high BP Illness 4 weeks ago, sinus HPI HPI New pt here to establish care BP was elevated at work physical 4 weeks of sinus congestion Snores, some day time fatigue, BMI 36 Past Medical History Past Medical History: Diagnosis Date Asthma Past Surgical History Past Surgical History: Procedure Laterality Date ANKLE FRACTURE SURGERY TONSILLECTOMY Family History Family History Problem Relation Age of Onset No Known Problems Mother No Known Problems Father Breast cancer Maternal Aunt Heart disease Maternal Grandfather Parkinsonism Paternal Grandmother Social History Social History Socioeconomic History Marital status: Single Spouse name: Not on file Number of children: Not on file Years of education: Not on file Highest education level: Not on file Occupational History Not on file Tobacco Use Smoking status: Never Smokeless tobacco: Current Types: Chew Substance and Sexual Activity Alcohol use: Yes Comment: occasional Drug use: No Sexual activity: Not on file Other Topics Concern Not on file Social History Narrative Not on file Social Drivers of Health Financial Resource Strain: Not on file Food Insecurity: No Food Insecurity (05/07/2024) Hunger Screening Food Insecurity - Worry: Never True Food Insecurity - Inability: Never True Transportation Needs: Not on file Physical Activity: Not on file Stress: Not on file Social Connections: Not on file Interpersonal Safety: Not on file Housing Instability: Not on file Allergies No Known Allergies Current Medications No current outpatient medications on file. No current facility-administered medications for this visit. Review of Systems Review of Systems Respiratory: Negative for shortness of breath. Cardiovascular: Negative for chest pain. Objective Vitals BP 128/78 Pulse 86 Temp 36.8 C (98.3 F) Ht 182.9 cm (6') Wt 122 kg (269 lb) SpO2 96% BMI 36.48 kg/m Physical Exam Physical Exam Vitals and nursing note reviewed. Constitutional: Appearance: He is well-developed. He is not ill-appearing, toxic-appearing or diaphoretic. HENT: Head: Normocephalic and atraumatic. Right Ear: Hearing, tympanic membrane, ear canal and external ear normal. Left Ear: Hearing, tympanic membrane, ear canal and external ear normal. Eyes: General: Lids are normal. Conjunctiva/sclera: Conjunctivae normal. Cardiovascular: Rate and Rhythm: Normal rate and regular rhythm. Heart sounds: Normal heart sounds, S1 normal and S2 normal. No murmur heard. Pulmonary: Effort: Pulmonary effort is normal. No tachypnea or respiratory distress. Breath sounds: Normal breath sounds. No decreased breath sounds, wheezing, rhonchi or rales. Musculoskeletal: Cervical back: Normal range of motion and neck supple. Lymphadenopathy: Cervical: No cervical adenopathy. Skin: General: Skin is warm and dry. Coloration: Skin is not pale. Findings: No rash. Neurological: Mental Status: He is alert and oriented to person, place, and time. Gait: Gait normal. Psychiatric: Speech: Speech normal. Behavior: Behavior normal. Thought Content: Thought content normal. Judgment: Judgment normal. Recent Pertinent Labs and Radiology Assessment/Plan 1. Elevated BP without diagnosis of hypertension 2. Acute non-recurrent frontal sinusitis - amoxicillin (AMOXIL) 500 mg capsule; Take 1 capsule (500 mg total) by mouth 3 (three) times a day for 10 days. Dispense: 30 capsule; Refill: 0 3. Hypertriglyceridemia 4. BMI 36.0-36.9,adult 5. Hypersomnolence - PSG Diagnostic; Future BP okay on re-check here Lose weight, reduce sodium in diet Treat sinusitis PSG Monitor BP at home, call > 140/90 Return in about 1 year (around 05/07/2025) for Annual physical. Medications Discontinued During This Encounter Medication Reason albuterol (PROVENTIL,VENTOLIN) 2.5 mg /3 mL (0.083 %) nebulizer solution Therapy completed There are no Patient Instructions on file for this visit. [facility] 06/01/24 0641 documented in this encounter [facility] 04-07-2024 History of Present illness Narrative Physical Therapy Treatment Visit Patient Name: Johnny Raya Today's Date: 04/07/2024 Encounter Diagnoses Name Primary? Closed fracture of right ankle, initial encounter Yes Right ankle pain, unspecified chronicity Visit number: 11 Timed Code Treatment Minutes: 54 minutes Total Treatment Time: 54 minutes Time In: 0800 Time Out: 0901 History: Jan 10 he was standing on [...] with swelling right LE. RTD 02/25/24. Precautions: [place] Subjective: Pt states his right ankle was sore for a few days following last session, not painful but sore. Wants ankle to feel normal again. Pain: 0/10 Objective: PT Evaluation (02/20/2024) Right [...] on Eval Findings and POC Manual Therapy: () Passive ROM, Joint mobilization, Soft Tissue Mobilization, Myofascial Release, Muscle Energy Technique, Neural Mobilization, Myofascial Cupping, Dry Needling, IASTM, and Scar mobilization as needed. IASTM to right calf and achilles in prone. Manual stretching right ankle DF in prone. Therapeutic Exercise: (41 minutes) Strength, Endurance, Flexibility, ROM, HEP, Neural Mobilization, Power, and Core Stability as needed. Exercises per grid. Initiated jogging this date with ASO donned. Therapeutic Activity: (13 minutes) Exercises to improve dynamic activities, functional tasks, functional mobility to return to prior activity level as needed. Neuromuscular re-education: Balance Training, Muscle Facilitation, Dynamic Stability, Core Stabilization, and Blood Flow Restriction Training (BFRT) as needed. Modalities: Heat, Ice, Electrical Stimulation, Ultrasound, Cervical Mechanical Traction, Lumbar Mechanical Traction, Iontophoresis, and Fluidotherapy as needed. Assessment: Pt has completed 11 PT sessions for right ankle fracture. Pt continues with gastroc/soleus weakness at end ranges right ankle PF and DF. Discussed importance of strengthening through full ROM; pt voiced good understanding. Mild compensation continues with double leg hops due to weakness. Will continue to progress as pt tolerates. Outcome Measure: Lower Extremity Functional Scale (LEFS): 61/80 Rehab Diagnosis: right ankle pain and weakness; difficulty walking Short Term Goal: To be met in 2 weeks Goal 1: Pt to be instructed in home exercise program. Goal 2: Pt to ambulate community distances in normal footwear. Pl[employer] Helper Goals: To be met in 10 weeks [...] sign below. Date: documented in this encounter [facility] 03-30-2024 History of Present illness Narrative Physical Therapy Treatment Visit Patient Name: Johnny Raya Today's Date: 03/30/2024 Encounter Diagnoses Name Primary? Closed fracture of right ankle, initial encounter Yes Right ankle pain, unspecified chronicity Visit number: 10 Timed Code Treatment Minutes: 48 minutes Total Treatment Time: 48 minutes Time In: 0900 Time Out: 0955 History: Jan 10 he was standing on [...] with swelling right LE. RTD 02/25/24. Precautions: [place] Subjective: Pt states right ankle is a little stiff today. Was out duck hunting yesterday. Pain: 0/10 Objective: PT Evaluation (02/20/2024) Right [...] on Eval Findings and POC Manual Therapy: (minutes) Passive ROM, Joint mobilization, Soft Tissue Mobilization, Myofascial Release, Muscle Energy Technique, Neural Mobilization, Myofascial Cupping, Dry Needling, IASTM, and Scar mobilization as needed. IASTM to right calf and achilles in prone. Manual stretching right ankle DF in prone. Therapeutic Exercise: (48 minutes) Strength, Endurance, Flexibility, ROM, HEP, Neural [...] Fluidotherapy as needed. Assessment: Pt has completed 10 PT sessions for right ankle fracture. Pt continues with moderate compensation with double leg hopping. Added single leg hop to focus on form. Strength right ankle PF 4/5. Will continue. Outcome Measure: Lower Extremity Functional Scale (LEFS): 61/80 Rehab Diagnosis: right ankle pain and weakness; difficulty walking Short Term Goal: To be met in 2 weeks Goal 1: Pt to be instructed in home exercise program. Goal 2: Pt to ambulate community distances in normal footwear. Pl[employer] Helper Goals: To be met in 10 weeks [...] sign below. Date: documented in this encounter [facility] 03-20-2024 History of Present illness Narrative Physical [...] with swelling right LE. RTD 02/25/24. Precautions: [place] Subjective: Pt states right ankle was a [...] to ambulate community distances in normal footwear. [employer] Goals: To be met in 10 weeks [...] sign below. Date: documented in this encounter [facility] 03-17-2024 History of Present illness Narrative Physical Therapy Treatment Visit Patient Name: Johnny Raya Today's Date: 03/17/2024 Encounter Diagnoses Name Primary? Closed fracture of right ankle, initial encounter Yes Right ankle pain, unspecified chronicity Visit number: 8 Timed Code Treatment Minutes: 55 minutes Total Treatment Time: 55 minutes Time In: 0800 Time Out: 0855 History: Jan 10 he was standing on [...] with swelling right LE. RTD 02/25/24. Precautions: [place] Subjective: Pt states right ankle continues to [...] per grid. Initiated jogging this date with ILAN cummins. Therapeutic Activity: Exercises to improve dynamic activities, [...] to ambulate community distances in normal footwear. [employer] Goals: To be met in 10 weeks [...] sign below. Date: documented in this encounter [facility] 03-12-2024 History of Present illness Narrative Physical [...] with swelling right LE. RTD 02/25/24. Precautions: [place] Subjective: Pt states he was in a [...] more stiff and achy this morning. Pain: 2-07/06 Objective: PT Evaluation (02/20/2024) Right ANKLE AROM: [...] to ambulate community distances in normal footwear. [employer] Goals: To be met in 10 weeks [...] sign below. Date: documented in this encounter [facility] 03-10-2024 History of Present illness Narrative Physical [...] with swelling right LE. RTD 02/25/24. Precautions: [place] Subjective: Pt states he is getting concerned [...] to ambulate community distances in normal footwear. [employer] Goals: To be met in 10 weeks [...] 1:08 PM EST documented in this encounter [facility] 03-03-2024 History of Present illness Narrative Physical [...] with swelling right LE. RTD 02/25/24. Precautions: [place] Subjective: Pt states he tried running at [...] to ambulate community distances in normal footwear. [employer] Goals: To be met in 10 weeks [...] sign below. Date: documented in this encounter [facility] 02-27-2024 History of Present illness Narrative Physical [...] with swelling right LE. RTD 02/25/24. Precautions: [place] Subjective: Pt states he was able to [...] to ambulate community distances in normal footwear. Group Home Goals: To be met in 10 [...] sign below. Date: documented in this encounter [facility] 02-25-2024 History of Present illness Narrative Physical [...] with swelling right LE. RTD 02/25/24. Precautions: [place] Subjective: Right ankle felt a lot better [...] to ambulate community distances in normal footwear. [employer] Goals: To be met in 10 weeks [...] sign below. Date: documented in this encounter [facility] 02-20-2024 History of Present illness Narrative Physical [...] with swelling right LE. RTD 02/25/24. Precautions: [place] Subjective: Right ankle Pain: 0/10 Objective: PT [...] to ambulate community distances in normal footwear. [employer] Helper Goals: To be met in 10 weeks [...] sign below. Date: documented in this encounter [facility] 01-18-2021 Note EXAMINATION: XR CHES T 2 [...] by: FLORA TALBERT Date: 2021-01-18 13:02 [facility] Evaluation note No assessment inform ation available [facility] Work Phone: Evaluation note Diagnosis Right ankle [...] [facility] Diagnosis Elevated BP without diagnosis of hypertension- Primary Acute non-recurrent frontal sinusitis Hypertriglyceridemia Pure hyperglyceridemia BMI 36.0-36.9,adult Hypersomnolence Hypersomnia, unspecified [facility] filed[facility]ructionsNot [facility] filedocumented in this [facility] Narrative* Rehabilitation - Outpatient (Routine) - Authorized Specialty Diagnoses / Procedures Referred By Contac t Referred To Contact Physical Therapy Diagnoses Pain in right ankle and joints of right foot Procedures PA PHYSICAL THERAPY EVALUATION LOW COMPLEX 20 MINS Radha Stinson MD [address] [place] [address] Phone: tel: Fernanda Raya PT Referral ID Status Reason Start Date Expiration Date Visits Requested Visits Authorized [id number] Authorized Consult and Treat 02/20/2024 08/18/2024 30 30 [facility] Summary Purpose Family History No Family History Records FoundNo Family History Records FoundNo Family History Records FoundNo Family History Records FoundNo Family History Records Found Advance Directives Advance Directive Response Recorded Date/ Time Advance Directives No August 17, 2 024 2:10pm Chief Complaint and Reason for Visit Chief Complaint Cough, congestion Additional Source Comments (unrecognized sect ion and content) No Status Records FoundNo Status Records FoundNo Status Records FoundNo Status Records FoundNo Status Records Found INFORMATION SOURCE (unrecogn ized section and content) DATE CREATED AUTHOR 03/02/2021 [facility] DATE CREATED AUTHOR AUTHOR'S ORGANIZ ATION 09/21/2021 [facility] DATE CREATED AUTHOR AUTHOR'S ORGANIZ ATION 01/13/2024 [facility] DATE CREATED AUTHOR AUTHOR'S ORGANIZ ATION 04/10/2024 [facility] DATE CREATED AUTHOR AUTHOR'S ORGANIZ ATION [facility] Care Teams (unrecognized sec tion and content) Team Status: Active Member Role Status Dates NON STAFF Primary Care Provider Active Team Status: Inactive Member Role Status Dates Daiana Brooks APRN Attending Provider Active Start: August 18, 2023 End: August 18, 2023 NON STAFF Primary Care Provider Active Start: August 18, 2023 End: August 18, 2023 Leak Hunter Relationship Specialty Start Date End Date Maria Eugenia Branch APRN-CNP [id number] [facility] [address] [place] [id number] PCP - General Internal Medicine 05/07/24 Leak Hunter Relationship Specialty Start Date End Date Maria Eugenia Branch APRN-CNP [address] [facility] [address] [place] [id number] PCP - General Internal Medicine 05/07/24 Goals (unrecognized section and content) Goals may be documented in a n alternate sectionNot on filedocumented as of this encounterNot on filedocumented as of this encounter Reason for Visit (unrecogniz ed section and content) Reason Onset Date Comments Sleep Lab 05/27/2024 [facility]G Reason Comments New Patient Est care, did physic al for work high BP Illness 4 weeks ago, sinus FOR RECORDS PERTAINING TO PATIENTS WHO ARE [...] BE BASED ON THE PRIMARY CLINICAL RECORDS. [employer] provides no warranty or guarantee of the accuracy or completeness of information in this document.
== END 2024-06-24 09:17 | disposition home or self-care (01) ==
LOC: RAD 09:16
PROVIDERS: Visit Provider Podiatrist Foot & Ankle Surgery
DX: M25.571 Pain in right ankle and joints of right foot (principal); Z98.890 Other specified postprocedural states
CPT/HCPCS: 73610